=== PATIENT | female | born 1940 | race Caucasian/White ===

== ENCOUNTER → 2017-09-04 | Outpatient (CLI) | payer MEDICARE ==
[2017-09-04 12:51] LABS: Source, Urine Clean Catch
[2017-09-04 13:06] LABS: Color, Urine Yellow (P-Yellow)
[2017-09-04 13:08] LABS: Appearance, Urine Clear (Clear); Bilirubin, Urine Neg (Neg); Blood, Urine Neg (Neg); Glucose Qualitative, Urine Neg (Normal); Ketones, Urine Neg (Neg); Leukocyte Esterase, Urine Neg (Neg); Nitrite, Urine Neg (Neg); Protein, Urine Neg (Neg); Specific Gravity, Urine 1.015 (1.003-1.022); Urobilinogen, Urine NORM (Normal)
== END | disposition home or self-care (01) ==
LOC: LAB EV 12:00
PROVIDERS: Internal Medicine
DX: E11.22 Type 2 diabetes mellitus with diabetic chronic kidney disease (principal); N18.3 Chronic kidney disease, stage 3 (moderate)
CPT/HCPCS: 81003; 82043

== ENCOUNTER → 2017-09-10 | Outpatient (CLI) | payer MEDICARE ==
[2017-09-10 16:08] LABS: Creatinine, Urine Random 55.1 mg/dL (27.00-270.00); Protein, Urine Random 19.9 mg/dL (0.0-11.9)
== END ==
LOC: LAB SHORT 14:51
PROVIDERS: Internal Medicine
DX: E78.5 Hyperlipidemia, unspecified (principal); I10 Essential (primary) hypertension
CPT/HCPCS: 82570; 84156

== ENCOUNTER → 2018-02-05 | Outpatient (CLI) | payer MEDICARE ==
[2018-02-05 15:10] LABS: Appearance, Urine Clear (Clear); Bilirubin, Urine Neg (Neg); Blood, Urine Neg (Neg); Color, Urine Yellow (P-Yellow); Glucose Qualitative, Urine Neg (Neg); Ketones, Urine Neg (Neg); Leukocyte Esterase, Urine 1+ (Neg); Nitrite, Urine Neg (Neg); Protein, Urine 1+ (Neg); Specific Gravity, Urine 1.015 (1.003-1.022); Urobilinogen, Urine NORM (Normal)
[2018-02-05 15:51] LABS: Bacteria Few /hpf; Red Blood Cells, Urine 0-2 /hpf (0-2); Squamous Epithelial Cells Few /hpf (Few)
== END | disposition home or self-care (01) ==
LOC: LAB SHORT 12:30 → LAB 12:30
PROVIDERS: Internal Medicine
DX: N17.9 Acute kidney failure, unspecified (principal)
CPT/HCPCS: 81001

== ENCOUNTER → 2018-09-02 | Outpatient (CLI) | payer MEDICARE | END | disposition home or self-care (01) | LOC: PLD 13:46 → LAB SHORT 13:46 | DX: D48.5 Neoplasm of uncertain behavior of skin (principal) | CPT/HCPCS: 88305; 88312 ==

== ENCOUNTER → 2019-03-03 | Outpatient (CLI) | payer MEDICARE | END | disposition home or self-care (01) | LOC: PLD 08:12 → LAB SHORT 08:12 | DX: D48.5 Neoplasm of uncertain behavior of skin (principal) | CPT/HCPCS: 88305 ==

== ENCOUNTER → 2019-04-28 | Outpatient (CLI) | payer MEDICARE | END | disposition home or self-care (01) | LOC: LAB 08:30 → LAB SHORT 08:30 | DX: C44.310 Basal cell carcinoma of skin of unspecified parts of face (principal) | CPT/HCPCS: 88305 ==

== ENCOUNTER → 2019-08-06 | Outpatient (CLI) | payer MEDICARE ==
[2019-08-06 14:32] LABS: Source, Urine Clean Catch
[2019-08-06 15:20] LABS: Bilirubin, Urine Neg (Neg); Blood, Urine 1+ (Neg); Glucose Qualitative, Urine Neg (Neg); Ketones, Urine Neg (Neg); Leukocyte Esterase, Urine Neg (Neg); Nitrite, Urine Neg (Neg); Protein, Urine 2+ (Neg); Specific Gravity, Urine 1.015 (1.003-1.022); Urobilinogen, Urine NORM (Normal)
[2019-08-06 15:29] LABS: Appearance, Urine Clear (Clear); Color, Urine Yellow (P-Yellow)
[2019-08-06 15:31] LABS: Bacteria Few /hpf; Squamous Epithelial Cells Few /hpf (Few); White Blood Cells, Urine 0-2 /hpf (0-5)
== END | disposition home or self-care (01) ==
LOC: LAB 14:30 → LAB SHORT 14:30 → LAB FUT 07-08 11:30 → EDSTATUS 07-08 11:30
PROVIDERS: Internal Medicine
DX: N18.3 Chronic kidney disease, stage 3 (moderate) (principal)
CPT/HCPCS: 81001

== ENCOUNTER → 2020-09-26 | Outpatient (CLI) | payer MEDICARE ==
[~2020-09-26] MED LIST: ASPI81CH PO; CALCIUM CIT 311 EACH PO; CILO100 PO; FAMO10 PO; GEMF600 PO; HYDCHL25 PO; LORA10ER PO; LOSA25 PO; METO100ER PO; POTA10T PO; ROSU10TA PO; VENL150ER PO
[2020-09-26 18:26] LABS: BASOPHILS ABSOLUTE AUTO 0.06 K/mm3 (0.00-0.23); BASOPHILS PERCENT AUTO 1 % (0-2); EOSINOPHILS ABSOLUTE AUTO 0.36 K/mm3 (0.00-0.68); EOSINOPHILS PERCENT AUTO 3 % (0-6); Hematocrit 41.9 % (33.0-51.0); Hemoglobin 13.7 g/dL (11.5-16.0); IMMATURE GRAN ABSOLUTE AUTO 0.03 K/mm3 (0.00-0.10); IMMATURE GRAN PERCENT AUTO 0 % (0-1); LYMPHOCYTES ABSOLUTE AUTO 2.96 K/mm3 (0.84-5.20); LYMPHOCYTES PERCENT AUTO 28 % (21-46); MONOCYTES ABSOLUTE AUTO 0.72 K/mm3 (0.16-1.47); MONOCYTES PERCENT AUTO 7 % (4-13); Mean Corpuscular HGB 28.2 pg (26.0-34.0); Mean Corpuscular HGB Conc 32.7 g/dL (31.5-36.5); Mean Corpuscular Volume 86 fL (80-100); Mean Platelet Volume 9.6 fL (9.1-12.4); NEUTROPHILS PERCENT AUTO 61 % (41-73); Platelet Count 272 K/mm3 (150-400); RDW Coefficient Variation 12.9 % (11.7-14.2); RDW Standard Deviation 40.3 fL (35.1-46.3); Red Blood Cell Count 4.86 M/mm3 (3.80-5.20); White Blood Cell Count 10.53 K/mm3 (4.00-11.30)
== END | disposition home or self-care (01) ==
LOC: LAB EV 18:21 → LAB SHORT 18:21
PROVIDERS: Physician Assistant
DX: R19.5 Other fecal abnormalities (principal); R31.9 Hematuria, unspecified
CPT/HCPCS: 85025; 87086

== ENCOUNTER → 2020-09-27 | Outpatient (CLI) | payer MEDICARE ==
[2020-09-27 12:39] LABS: BASOPHILS ABSOLUTE AUTO 0.05 K/mm3 (0.00-0.23); BASOPHILS PERCENT AUTO 1 % (0-2); EOSINOPHILS ABSOLUTE AUTO 0.28 K/mm3 (0.00-0.68); EOSINOPHILS PERCENT AUTO 3 % (0-6); Hematocrit 39.3 % (33.0-51.0); IMMATURE GRAN ABSOLUTE AUTO 0.02 K/mm3 (0.00-0.10); IMMATURE GRAN PERCENT AUTO 0 % (0-1); LYMPHOCYTES ABSOLUTE AUTO 2.34 K/mm3 (0.84-5.20); LYMPHOCYTES PERCENT AUTO 28 % (21-46); MONOCYTES ABSOLUTE AUTO 0.53 K/mm3 (0.16-1.47); MONOCYTES PERCENT AUTO 6 % (4-13); Mean Corpuscular HGB 28.4 pg (26.0-34.0); Mean Corpuscular HGB Conc 33.1 g/dL (31.5-36.5); Mean Corpuscular Volume 86 fL (80-100); Mean Platelet Volume 9.4 fL (9.1-12.4); NEUTROPHILS ABSOLUTE AUTO 5.06 K/mm3 (1.96-9.15); NEUTROPHILS PERCENT AUTO 61 % (41-73); Platelet Count 253 K/mm3 (150-400); Red Blood Cell Count 4.58 M/mm3 (3.80-5.20); White Blood Cell Count 8.28 K/mm3 (4.00-11.30)
== END | disposition home or self-care (01) ==
LOC: LAB SHORT 12:36 → LAB 12:36
PROVIDERS: Physician Assistant
DX: R19.5 Other fecal abnormalities (principal)
CPT/HCPCS: 85025

== ENCOUNTER 2021-02-08 11:04 | Day surgery (SDC) | payer MEDICARE ==
[~2021-02-08] VITALS: Ht 152.4 cm; Wt 73.8 kg
[2021-02-08] MEDS ORDERED: ASPI81CH PO (12:43)
[2021-02-08] MEDS ORDERED: CILO100 PO (12:44)
[2021-02-08] MEDS ORDERED: CALCIUM CIT 311 EACH PO (12:44)
[2021-02-08] MEDS ORDERED: FAMO10 PO (12:45)
[2021-02-08] MEDS ORDERED: GEMF600 PO (12:45)
[2021-02-08] MEDS ORDERED: HYDCHL25 PO (12:45)
[2021-02-08] MEDS ORDERED: LORA10ER PO (12:46)
[2021-02-08] MEDS ORDERED: LOSA25 PO (12:46)
[2021-02-08] MEDS ORDERED: POTA10T PO (12:47)
[2021-02-08] MEDS ORDERED: METO100ER PO (12:47)
[2021-02-08] MEDS ORDERED: ROSU10TA PO (12:48)
[2021-02-08] MEDS ORDERED: VENL150ER PO (12:48)
--- NOTE | 2021-02-08 13:11 | NUR ---
02/08/21 1311 Lenka Bray PT BEGAN VOMITING AT 1216, PULSE DROPPED TO 58-60, THEN INCREASED TO 130. HEART RHYTHM CHANGED, MONITOR STATED "V-TACH". IMMEDIATELY WITHDREW SCOPE AND DR. DARNELL CALLED INTO ROOM. 12 LEAD EKG DONE, HYPERTENSIVE @ 228/94, O2 SATS 94-99% ON 3L O2. HEART RATE CHANGED BACK INTO NSR. CONTINUED PROCEDURE TO OBTAIN RECTAL BXS OF RECTAL MASS. PT GIVEN 2MG VERSED. RHYTHM REMAINS AT BASELINE THROUGHOUT PROCEDURE. PT BROOUGHT INTO STEPDOWN, VSS. PT REMAINS HYPERTENSIVE, ALTHOUGH AT BASELINE. PT DENIES ANY COMPLAINTS, DENIES CHEST PAIN. AWAITING PHYSICIAN ORDERS AND PLAN OF CARE.
--- NOTE | 2021-02-08 13:14 | NUR ---
02/08/21 1314 Lenka Bray AWAITING ORDERS FROM DR. DARNELL AFTER CONSULTATION WITH REAL ESTATE BRANCH MANAGER. PT DENIES NEEDS, PROVIDED WARM BLANKET, BOTH SIDE RAILS UP, CALL LIGHT IN REACH. WILL CONTINUE TO UPDATE AND MONITOR.
== END 2021-02-08 13:45 | disposition home or self-care (01) ==
LOC: ORSCSDS 11:04
PROVIDERS: Student in an Organized Health Care Education/Training Program
PROC: 0DBP8ZX Excision of Rectum, Via Natural or Artificial Opening Endoscopic, Diagnostic (ICD-10-PCS; principal; 2021-02-08 12:15)
DX: K62.5 Hemorrhage of anus and rectum (principal); D12.8 Benign neoplasm of rectum; K64.8 Other hemorrhoids; K64.4 Residual hemorrhoidal skin tags; I10 Essential (primary) hypertension; Z87.891 Personal history of nicotine dependence; N18.4 Chronic kidney disease, stage 4 (severe); E11.9 Type 2 diabetes mellitus without complications; Z79.899 Other long term (current) drug therapy; Z79.82 Long term (current) use of aspirin
CPT/HCPCS: 82947; 88305; 93005; 93010; J2250; J2405; J2704; J7120

== ENCOUNTER 2021-03-06 14:38 | Inpatient (IN) | payer MEDICARE ==
[~2021-03-06] VITALS: Ht 149.9 cm; Wt 83.1 kg
[~2021-03-06 14:38] MED LIST changes: -ASPI81CH PO; -CILO100 PO; -HYDCHL25 PO; -LOSA25 PO; -METO100ER PO; -POTA10T PO; -ROSU10TA PO; -VENL150ER PO
[2021-03-06 15:47] LABS: BASOPHILS ABSOLUTE AUTO 0.05 K/mm3 (0.00-0.23); BASOPHILS PERCENT AUTO 0 % (0-2); EOSINOPHILS ABSOLUTE AUTO 0.11 K/mm3 (0.00-0.68); EOSINOPHILS PERCENT AUTO 1 % (0-6); Hematocrit 45.6 % (33.0-51.0); IMMATURE GRAN ABSOLUTE AUTO 0.04 K/mm3 (0.00-0.10); IMMATURE GRAN PERCENT AUTO 0 % (0-1); LYMPHOCYTES ABSOLUTE AUTO 2.32 K/mm3 (0.84-5.20); LYMPHOCYTES PERCENT AUTO 18 % (21-46); MONOCYTES ABSOLUTE AUTO 0.81 K/mm3 (0.16-1.47); MONOCYTES PERCENT AUTO 6 % (4-13); Mean Corpuscular HGB 28.6 pg (26.0-34.0); Mean Corpuscular HGB Conc 32.9 g/dL (31.5-36.5); Mean Corpuscular Volume 87 fL (80-100); Mean Platelet Volume 9.9 fL (9.1-12.4); NEUTROPHILS ABSOLUTE AUTO 9.68 K/mm3 (1.96-9.15); NEUTROPHILS PERCENT AUTO 75 % (41-73); Platelet Count 289 K/mm3 (150-400); RDW Coefficient Variation 13.9 % (11.7-14.2); RDW Standard Deviation 44.5 fL (35.1-46.3); Red Blood Cell Count 5.25 M/mm3 (3.80-5.20); White Blood Cell Count 13.01 K/mm3 (4.00-11.30)
[2021-03-06 16:48] LABS: Alanine Aminotransfer (ALT/SGP 19 U/L (12-78); Albumin, Blood 3.6 g/dL (3.4-5.0); Albumin/Globulin Ratio 0.9 (0.8-1.8); Alk Phos 96 U/L (50-136); Anion Gap 9 mmol/L (6-16); Aspartate Aminotrans (AST/SGOT 14 U/L (12-37); Bilirubin, Total 0.9 mg/dL (0.1-1.0); Blood Urea Nitrogen 14 mg/dL (8-24); CO2, Blood 24 mmol/L (21-32); Calcium, Blood 9.3 mg/dL (8.5-10.1); Chloride, Blood 110 mmol/L (98-108); Creatinine, Blood 1.17 mg/dL (0.40-1.00); Ethanol (Alcohol), Blood, Med <3 mg/dL; Globulin, Blood 3.8 g/dL (2.2-4.0); Glomerular Filtration Rate 45 (60-); Glucose, Blood 144 mg/dL (70-99); Potassium, Blood 3.8 mmol/L (3.5-5.5); Sodium, Blood 143 mmol/L (136-145); Total Protein, Blood 7.4 g/dL (6.4-8.2)
[2021-03-06 17:32] LABS: Base Excess Venous -2.2 mmol/L; Bicarbonate Venous 23.3 mmol/L (24.0-30.0); PCO2 Venous 33.1 mmHg (38-42); PO2 Venous 104 mmHg (38-42); pH Blood Venous 7.43 (7.34-7.37)
[2021-03-06 17:54] LABS: Source, Urine Catheter
[2021-03-06 18:04] LABS: Appearance, Urine Clear (Clear); Bilirubin, Urine Neg (Neg); Blood, Urine 3+ (Neg); Color, Urine Yellow (P-Yellow); Glucose Qualitative, Urine Neg (Neg); Ketones, Urine 1+ (Neg); Leukocyte Esterase, Urine Neg (Neg); Nitrite, Urine Neg (Neg); Protein, Urine 4+ (Neg); Specific Gravity, Urine 1.015 (1.003-1.022); Urobilinogen, Urine NORM (Normal); pH, Urine 6.5 (5.0-8.0)
[2021-03-06] MEDS ORDERED: POTA10T PO (18:41)
[2021-03-06] MEDS ORDERED: HYDCHL25 PO (18:41)
[2021-03-06] MEDS ORDERED: HYDROCODONE-AC1 EA13 PO (18:41)
[2021-03-06] MEDS ORDERED: METO100ER PO (18:41)
[2021-03-06] MEDS ORDERED: VENL150ER PO (18:42)
[2021-03-06] MEDS ORDERED: CILO100 PO (18:42)
[2021-03-06] MEDS ORDERED: ROSU10TA PO (18:42)
[2021-03-06] MEDS ORDERED: LOSA25 PO (18:42)
[2021-03-06] MEDS ORDERED: Aspir 8181 MG PO (18:43)
[2021-03-06 18:50] LABS: RBC Count, CSF 742 /mm3 (0-0); WBC Count, CSF 0 /mm3 (0-5)
[2021-03-06 18:51] LABS: Appearance, CSF Clear (Clear); Color, CSF No Color (No Color)
[2021-03-06 18:58] LABS: RBC Count, CSF 1 /mm3 (0-0); WBC Count, CSF 0 /mm3 (0-5)
[2021-03-06 18:59] LABS: Appearance, CSF Clear (Clear); Color, CSF No Color (No Color)
--- NOTE | 2021-03-06 19:00 | NUR ---
ASSUMPTION OF CARE PT ARRIVED FROM ED AT 18:55. PT IS INTUBATED WITH SETTINGS AC 14/350/5/35. PT RECEIVING PROPOFOL AT 55MCG/KG/MIN. PT IS HYPERTENSIVE AT THIS TIME WITH SBP 240S. DR BETANCOURT AT BEDSIDE FOR EVAL, ORDER GIVEN FOR ESMOLOL. HUERTA PATENT AND DRAINING YELLOW URINE.
[2021-03-06 19:03] LABS: Glucose, CSF 69 mg/dL (40-70)
[2021-03-06 19:06] LABS: U Benzodiazapine Screen DETECTED; U Opiates Screen DETECTED
[2021-03-06 19:07] LABS: U Amphetamine Screen Not Detected; U Barbituate Screen Not Detected; U Buprenorphine Screen Not Detected; U Cannabinoids Screen Not Detected; U Cocaine Screen Not Detected; U Methadone Screen Not Detected; U Methamphetamine Screen Not Detected; U Oxycodone Screen Not Detected; U Phencyclidine Screen Not Detected; U Propoxyphene Screen Not Detected
[2021-03-06 19:15] LABS: Bacteria Many /hpf; Squamous Epithelial Cells Many /hpf (Few); White Blood Cells, Urine 0-2 /hpf (0-5)
[2021-03-06 20:08] LABS: Cryptococcus Neoformans/Gattii Not Detected (NOT DETECT); Enterovirus Not Detected (NOT DETECT); Escherichia Coli K1 Not Detected (NOT DETECT); Haemophilus Influenza Not Detected (NOT DETECT); Herpes Simplex Virus 1 Not Detected (NOT DETECT); Herpes Simplex Virus 2 Not Detected (NOT DETECT); Human Herpesvirus 6 Not Detected (NOT DETECT); Human Parechovirus Not Detected (NOT DETECT); Listeria Monocytogenes Not Detected (NOT DETECT); Neisseria Meningitidis Not Detected (NOT DETECT); Streptococcus Agalactiae Not Detected (NOT DETECT); Streptococcus Pneumoniae Not Detected (NOT DETECT); Varicella Zoster Virus Not Detected (NOT DETECT)
--- NOTE | 2021-03-06 21:50 | NUR ---
CALL TO LAB CALLED WITH CRITICAL LACTIC ACID. PT ALSO HAD 14 BEAT RUN OF VTACH ON CONTINUOUS MOLD CARPENTER. PHONE CALL PLACED TO DR BETANCOURT AT THIS TIME. ORDERS GIVEN FOR STAT LABS AND FLUIDS. REQUESTED TO BE CALLED WITH LAB RESULTS.
[2021-03-06 22:24] LABS: PCO2 Arterial 33.4 mmHg (35-45); PO2 Arterial 80.6 mmHg (80-100); pH Blood Arterial 7.47 (7.35-7.45)
[2021-03-06 22:53] LABS: Source, Urine Catheter
[2021-03-06 22:55] LABS: Bilirubin, Urine Neg (Neg); Blood, Urine Neg (Neg); Glucose Qualitative, Urine 1+ (Neg); Ketones, Urine Neg (Neg); Leukocyte Esterase, Urine Neg (Neg); Nitrite, Urine Neg (Neg); Protein, Urine 2+ (Neg); Urobilinogen, Urine NORM (Normal)
[2021-03-06 23:01] LABS: Appearance, Urine Clear (Clear); Color, Urine Yellow (P-Yellow)
[2021-03-06 23:02] LABS: Bacteria Many /hpf; Hyaline Casts 0-2 /lpf (0-2); Red Blood Cells, Urine 0-2 /hpf (0-2); Squamous Epithelial Cells Not Seen /hpf (Few)
[2021-03-06 23:20] LABS: Creatine Kinase MB 2.5 ng/mL (0.0-3.6); Creatine Kinase MB Index 2.6 (0.0-4.0)
[2021-03-06 23:26] LABS: Albumin, Blood 3.2 g/dL (3.4-5.0); Albumin/Globulin Ratio 0.8 (0.8-1.8); Bilirubin, Total 0.5 mg/dL (0.1-1.0); Bun/Creatinine Ratio 12.2 (12.0-20.0); Calcium, Blood 8.8 mg/dL (8.5-10.1); Creatinine, Blood 1.15 mg/dL (0.40-1.00); Potassium, Blood 3.5 mmol/L (3.5-5.5); Total Protein, Blood 7.2 g/dL (6.4-8.2); Troponin I 0.51 ng/mL (0.000-0.040)
--- NOTE | 2021-03-07 06:13 | NUR ---
SHIFT SUMMARY PT REMAINS INTUBATED. VENT SETTINGS AC 14/350/5/30%. PT RECEIVING PROPOFOL AT 35MCG/KG/MIN, ESMOLOL AT 50MCG/KG/MIN, AND LR AT 100MLS/HR. SBP REMAINS IN 140S. SBT DONE, SEE RT DOCUMENTATION. PROPOFOL TITRATED OFF, PT MOVING ALL EXTREMITIES PURPOSEFULLY BUT NOT FOLLOWING COMMANDS. BECAME AGITATED DURING WEAN. URINE OUTPUT 750ML THROUGHOUT SHIFT. WILL REPORT TO ONCOMING RN.
[2021-03-07 06:25] LABS: Hematocrit 43.5 % (33.0-51.0); Hemoglobin 14.4 g/dL (11.5-16.0); Mean Corpuscular HGB 28.6 pg (26.0-34.0); Mean Corpuscular HGB Conc 33.1 g/dL (31.5-36.5); Mean Corpuscular Volume 87 fL (80-100); Platelet Count 210 K/mm3 (150-400); RDW Coefficient Variation 14.4 % (11.7-14.2); RDW Standard Deviation 45.6 fL (35.1-46.3); Red Blood Cell Count 5.03 M/mm3 (3.80-5.20); White Blood Cell Count 14.37 K/mm3 (4.00-11.30)
--- NOTE | 2021-03-07 07:30 | NUR ---
ASSUMED CARE: PT INTUBATED AND SEDATED ON 45MCG OF PROPOFOL. VENT SETTINGS AC 14/350/5/30%. ESMOLOL GTT AT 50MCG AT THIS TIME WITH BPS IN 160S SYSTOLIC. BILATERAL WRIST RESTRAINTS. OG IN PLACE WITH GREEN DRAINAGE AT LIS. HUERTA DRAINING CLEAR YELLOW URINE. NO ACUTE NEEDS AT THIS TIME.
[2021-03-07 07:31] LABS: Creatine Kinase MB 6.7 ng/mL (0.0-3.6); Creatine Kinase MB Index 0.8 (0.0-4.0); Magnesium, Blood 2.1 mg/dL (1.6-2.4); Troponin I 0.396 ng/mL (0.000-0.040)
[2021-03-07 07:33] LABS: Bun/Creatinine Ratio 12.3 (12.0-20.0); Calcium, Blood 8.8 mg/dL (8.5-10.1); Creatinine, Blood 1.22 mg/dL (0.40-1.00); Phosphorus, Blood 3.2 mg/dL (2.5-4.9); Potassium, Blood 3.3 mmol/L (3.5-5.5)
--- NOTE | 2021-03-07 10:39 | NUR ---
ATTEMPTED TO SPEAK WITH PT'S . NO ANSWER ON EITHER PHONE NUMBER. LEFT A MESSAGE TO CALL BACK SO WE CAN ASK A FEW QUESTIONS.
--- NOTE | 2021-03-07 11:28 | NUR ---
PT'S CALLED BACK AND STATED THAT PT STARTED TAKING NORCO A FEW DAYS AGO AND ONLY TOOK IT FOR 2-3 DAYS. STATES SHE HAS DIABETES, HIGH BLOOD PRESSURE, A MASS IN HER ANUS, A BLOCKAGE OF THE AORTA AND "KIDNEY AND LIVER PROBLEMS." SEEMS TO BE POOR HISTORIAN. CALL TO DR COLON'S OFFICE AND FAX BACK WITH RECENT HEALTH HISTORY. DR BETANCOURT AWARE THAT THIS AVAILABLE FOR REVIEW.
--- NOTE | 2021-03-07 13:15 | NUR ---
Echocardiogram performed.
--- NOTE | 2021-03-07 18:53 | NUR ---
SHIFT SUMMARY: PT REMAINS ON VENT WITH SETTINGS AC 14/350/5/30%. PROPOFOL AT 45MCG AT THIS TIME. ESMOLOL GTT AT 40 MCG. ATTEMPTED TO TITRATE DOWN BUT PT'S BP COULD NOT TOLERATE. MEDICATED X1 WITH 5MG OF METOPROLOL. PLAN IS FOR IMPROVEMENT WITH MENTAL STATUS, CURRENTLY DOES NOT FOLLOW COMMANDS OR MAKE PURPOSEFUL MOVEMENT. FAMILY HAS BEEN UPDATED REGARDING STATUS.
--- NOTE | 2021-03-07 19:15 | NUR ---
REPORT RECEIVED-CARE ASSUMED. PT SEDATED ON PROPOFOL ON VENT. SEE FLOWSHEET FOR GTT RATES. CONTINUE ASSESSMENTS AND CARE.
--- NOTE | 2021-03-08 02:23 | NUR ---
ASSESS-NO CHANGE-HYDROLAZINE GIVEN ONCE AT 2330 FOR HTN. CONTINUE CURRENT GTTS-VITALS NOTED IN FLOWSHEET. BED BATH NOW. CONTINUE ASSESSMENTS AND CARE.
[2021-03-08 03:53] LABS: BASOPHILS ABSOLUTE AUTO 0.04 K/mm3 (0.00-0.23); BASOPHILS PERCENT AUTO 0 % (0-2); EOSINOPHILS ABSOLUTE AUTO 0.24 K/mm3 (0.00-0.68); EOSINOPHILS PERCENT AUTO 2 % (0-6); Hematocrit 37.7 % (33.0-51.0); Hemoglobin 12.2 g/dL (11.5-16.0); IMMATURE GRAN ABSOLUTE AUTO 0.06 K/mm3 (0.00-0.10); IMMATURE GRAN PERCENT AUTO 1 % (0-1); LYMPHOCYTES ABSOLUTE AUTO 1.68 K/mm3 (0.84-5.20); LYMPHOCYTES PERCENT AUTO 14 % (21-46); MONOCYTES ABSOLUTE AUTO 1.29 K/mm3 (0.16-1.47); MONOCYTES PERCENT AUTO 11 % (4-13); Mean Corpuscular HGB 28.6 pg (26.0-34.0); Mean Corpuscular HGB Conc 32.4 g/dL (31.5-36.5); Mean Corpuscular Volume 89 fL (80-100); Mean Platelet Volume 10.2 fL (9.1-12.4); NEUTROPHILS ABSOLUTE AUTO 8.98 K/mm3 (1.96-9.15); NEUTROPHILS PERCENT AUTO 73 % (41-73); Platelet Count 176 K/mm3 (150-400); RDW Coefficient Variation 14.7 % (11.7-14.2); RDW Standard Deviation 48.2 fL (35.1-46.3); Red Blood Cell Count 4.26 M/mm3 (3.80-5.20); White Blood Cell Count 12.29 K/mm3 (4.00-11.30)
[2021-03-08 06:51] LABS: Albumin, Blood 2.3 g/dL (3.4-5.0); Albumin/Globulin Ratio 0.7 (0.8-1.8); Bilirubin, Total 0.6 mg/dL (0.1-1.0); Bun/Creatinine Ratio 11.7 (12.0-20.0); Creatinine, Blood 1.2 mg/dL (0.40-1.00); Globulin, Blood 3.2 g/dL (2.2-4.0); Magnesium, Blood 2.1 mg/dL (1.6-2.4); Phosphorus, Blood 2.7 mg/dL (2.5-4.9); Potassium, Blood 3.7 mmol/L (3.5-5.5); Total Protein, Blood 5.5 g/dL (6.4-8.2)
--- NOTE | 2021-03-08 07:15 | NUR ---
END OF SHIFT REPORT OFF TO ONCOMING RN. PT REMAINS ON VENT-SEDATED ON PROPOFOL.
--- NOTE | 2021-03-08 10:00 | NUR ---
Care Assumed 0700 Pt intubated and sedated. Propofol GTT @ 55 mcg/kg/min when care assumed, titrated down, see flow sheet. Esmolol placed on SB, BP stable, will treat per emar as needed. Pt responds to noxious stimuli only, grimace during oral care, moves all extrems. Vent settings: VCA 14/350/5/30%, spo2 > 90%. Lung sounds clear. Stinson in place. OG tube in place to LIS. SBW. VSS. Will continue to monitor.
--- NOTE | 2021-03-08 11:00 | NUR ---
SBT 1028 to 1045 Propofol placed and SB and vent settings changed to PS 7/5, FIO2 30%. Pt tolerating vent settings well, SPO2 > 90% but thrashing in bed. Moving head from side to side, attempting to open eyes but unable to follow commands. Sedation vacation ended within 15 minutes due to risk of self extubation, RT at bedside and vent settings changed back to AC VC 14/350/5/30%.
--- NOTE | 2021-03-08 13:34 | NUR ---
HYPOGLYCEMIA Dr. Mckenna called in regards to patient CBG results of 54, new orders recieved, see emar. After treatment glucose increased to 79. Will continue to monitor.
--- NOTE | 2021-03-08 19:30 | NUR ---
ASSUMED CARE OF PATIENT. REPORT RECEIVED FROM ANETTE YOO. PT IS COMFORTABLY SEDATED ON PROPOFOL. PLAN FOR EXTUBATION TOMORROW.
--- NOTE | 2021-03-08 19:30 | NUR ---
Provider call - Hypoglycemia Dr. Mckenna called in regards to blood sugar of 57. New orders recieved, increase D5 1/2 NS to 125 ml/hr and place PRN orders for Dextrose 50% 1 AMP for blood sugar less than 75 ml/hr. CBG increased to 90 after treatment.
--- NOTE | 2021-03-08 19:34 | NUR ---
Shift summary Pt remains intubated, vent settings unchanged. Propofol GTT 45 MCG/KG/MIN, Pt unable to follow commands, responds to painful stumli. Pt hypoglycemic, see previous note. Currently on D5W 07/29 NS @ 125 ml/hr. Pts son in to see patient today, updated on all care being provided. VSS. NSR.
[2021-03-09 03:33] LABS: BASOPHILS ABSOLUTE AUTO 0.05 K/mm3 (0.00-0.23); BASOPHILS PERCENT AUTO 1 % (0-2); EOSINOPHILS PERCENT AUTO 3 % (0-6); Hematocrit 34.7 % (33.0-51.0); Hemoglobin 10.8 g/dL (11.5-16.0); IMMATURE GRAN ABSOLUTE AUTO 0.03 K/mm3 (0.00-0.10); IMMATURE GRAN PERCENT AUTO 0 % (0-1); LYMPHOCYTES ABSOLUTE AUTO 1.54 K/mm3 (0.84-5.20); LYMPHOCYTES PERCENT AUTO 17 % (21-46); MONOCYTES ABSOLUTE AUTO 0.93 K/mm3 (0.16-1.47); MONOCYTES PERCENT AUTO 10 % (4-13); Mean Corpuscular HGB 28.6 pg (26.0-34.0); Mean Corpuscular HGB Conc 31.1 g/dL (31.5-36.5); Mean Corpuscular Volume 92 fL (80-100); Mean Platelet Volume 10.4 fL (9.1-12.4); NEUTROPHILS ABSOLUTE AUTO 6.19 K/mm3 (1.96-9.15); NEUTROPHILS PERCENT AUTO 69 % (41-73); Platelet Count 201 K/mm3 (150-400); RDW Coefficient Variation 15.2 % (11.7-14.2); RDW Standard Deviation 51.2 fL (35.1-46.3); Red Blood Cell Count 3.78 M/mm3 (3.80-5.20); White Blood Cell Count 9.04 K/mm3 (4.00-11.30)
[2021-03-09 03:53] LABS: Albumin, Blood 2.1 g/dL (3.4-5.0); Albumin/Globulin Ratio 0.7 (0.8-1.8); Bilirubin, Total 0.5 mg/dL (0.1-1.0); Bun/Creatinine Ratio 10.3 (12.0-20.0); Calcium, Blood 8.1 mg/dL (8.5-10.1); Creatinine, Blood 1.26 mg/dL (0.40-1.00); Globulin, Blood 3.2 g/dL (2.2-4.0); Magnesium, Blood 1.9 mg/dL (1.6-2.4); Phosphorus, Blood 3.2 mg/dL (2.5-4.9); Potassium, Blood 3.3 mmol/L (3.5-5.5); Total Protein, Blood 5.3 g/dL (6.4-8.2)
--- NOTE | 2021-03-09 06:50 | NUR ---
SHIFT SUMMARY PT REMAINS COMFORTABLY SEDATED AND V/S WNL. SHE DID REQUIRE 1 DOSE OF HYDRALAZINE FOR ELEVATED BP LAST NOC. ARMS ARE EDEMATOUS AND ELEVATED ON PILLOWS. PLAN FOR EXTUBATION TODAY. WILL REPORT TO ONCOMING SHIFT.
--- NOTE | 2021-03-09 08:10 | NUR ---
INITIAL ASSESSMENT PATIENT INTUBATED AND SEDATED. PATIENT RESPONDING TO PAINFUL STIMULI/ ORAL CARE WITH GRIMACING AND SLIGHT MOVEMENT OF BILAT LEGS AND FEET. NO MOVEMENT IN HANDS/ ARMS NOTED. PATIENT AFEBRILE. NO PAIN NOTED AT THIS TIME. PATIENT ON AC 14, TV 350, PEEP 5 AND 30% FIO2. LUNGS CLEAR THROUGHOUT. SCANT AMOUNT OF THIN, CLEAR SPUTUM NOTED WITH ETT SUCTIONING. PATIENT IN SR, HR IN THE 70S. SBP 130S TO 140S. SCDS IN PLACE. HYPOACTIVE BS NOTED. OG IN PLACE AND CLAMPED. LAST DOCUMENTED BM ON 03/07. HUERTA IN PLACE DRAINING CLEAR, YELLOW URINE. FEET COLD AND DUSKY; CAP REFILL LESS THAN 3 SECONDS. PROPOFOL INFUSING AT 45 MCG/ KG/ MINUTE. D5W 1/2 NS INFUSING AT 125 MLS/ HOUR. BED LOW. WILL CONTINUE TO MONITOR PATIENT FREQUENTLY THROUGHOUT SHIFT.
[2021-03-09 09:12] LABS: Vancomycin, Trough 16.9 ug/mL (5.0-10.0)
--- NOTE | 2021-03-09 12:30 | NUR ---
PATIENT AFEBRILE. PATIENT EXTUBATED. PATIENT SATTING 90% AND GREATER ON 2 L NC. PATIENT ANXIOUS AND AGITATED. SPEECH GARBLED. PATIENT NOT FOLLOWING COMMANDS FOR NURSE BUT IS CLOSING EYES AND STICKING TONGUE OUT FOR DR. YU WHEN HE ASKS. HR 70S TO 90S. SBP 120S TO 130S. OG DC'D WHEN PATIENT EXTUBATED. BLOOD SUGAR OF 97. BED LOW, CALL LIGHT IN REACH, BED ALARM ON. WILL CONTINUE TO MONITOR.
--- NOTE | 2021-03-09 17:21 | NUR ---
PATIENT HAS TEMP OF 99.7 DEGREES FAHRENHEIT. PATIENT REMAINS SATTING 90% AND GREATER ON 2 L NC. RR 20S TO 40S. HR IN THE 1-TEENS. SBP 180S TO 220S. BP ELEVATED WITH AGITATION AND PATIENT MOVING AROUND IN BED. NICARDIPINE DRIP STARTED AND INFUSING AT 5 MG/ HOUR. BED LOW, CALL LIGHT IN REACH. RESTRAINTS BACK ON PATIENT CONTINUES TO PULL AT LINES, CORDS, MONITORING EQUIPMENT. WILL CONTINUE TO MONITOR.
--- NOTE | 2021-03-09 19:16 | NUR ---
SHIFT SUMMARY PATIENT EXTUBATED TODAY. PATIENT HAS BEEN CONFUSED AND AGITATED. PATIENT PLACED BACK IN RESTRAINTS PULLING AT LINES AND MONITORING EQUIPEMENT. PATIENT ORIENTED TO [facility] AND [place] [facility], OTHERWISE IS CONFUSED. PATIENT HAS BEEN TEARFUL ON AND OFF. SPEECH REMAINS GARBLED. PATIENT WEAK BUT ABLE TO MOVE ALL EXTREMITIES. PATIENT HAD HIGH TEMP OF 99.7 DEGREES FAHRENHEIT. LUNGS REMAINED CLEAR. PATIENT ON RA AT THIS TIME. PATIENT SR TO ST, HR 70S TO 120S. SBP 1-TEENS TO 220S. PATIENT TACHYCARDIC AND HYPERTENSIVE WHEN AGITATION AND MOVING AROUND. NICARDIPINE DRIP STARTED BUT IS NOW ON SB. PATIENT'S BLOOD PRESSURE COMES DOWN MUCH AFTER HOLDING PATIENT'S ARM AND HAND STILL. PATIENT HAD BM SMEAR THIS SHIFT. PATIENT REMAINED NPO FAILED BEDSIDE SWALLOW EVAL. 2400 MLS OF CLEAR YELLOW URINE OUT FROM HUERTA. NO CHANGE TO SKIN. REPOSITIONING Q2H. D5W 1/2 NS INFUSING AT 50 MLS/ HOUR. PATIENT RECEIVED ZYPREXA IM OT THIS SHIFT AND DID HELP WITH AGITATION. PATIENT RECEIVED COMPLETE BEDBATH THIS SHIFT. CAME TO VISIT THIS SHIFT. BLOOD SUGARS 97 TO 116. PATIENT RECEIVED 40 MEQ KCL FOR POTASSIUM OF 3.3 THIS AM. BED LOW, CALL LIGHT IN REACH. REPORT GIVEN TO ASSUMING INTERIOR DESIGN PROGRAM CHAIR NURSE.
--- NOTE | 2021-03-09 22:55 | NUR ---
ASSUMED CARE AT 1900, TRAVIS LYING IN BED, ASKEW. ASKED IF SHE KNEW WHERE SHE WAS AND SHE SAID ALICE, SHE DENIED ANY COMPLAINTS, KNEW SHE WAS AT THE HOSPITAL, MUMBLED SOMETHING ABOUT [place], SAID HER SON WAS THERE. PT REPOSITIONED, AGITATED, TEARFUL, ZYPREXA IM GIVEN PER EMAR. RESTRAINTS REMOVED, CARE DONE. PT WITH CLEAR LUNG SOUNDS, SATS >93% ON RA, RASPY SPEECH WEAK COUGH, MOVING ALL EXTREMITIES. BP ELEVATED, NICARDIPINE DRIP TURNED ON AT 5MG/HR FOR SBP >180 AND DBP >100. HUERTA TO GRAVITY DRAINAGE. PT WAS SLOWED DOWN SLIGHTLY BY THE ZYPREXA, BEGAN COMPLAINING OF HEADACHE AT 2200 AND MEDICATED PER SEP. PT STATED RELIEF FROM HEADACHE. CONTINUES TO BE ASKEW IN BED, REPEATS THINGS SHE HEARS. DOESN'T DO ANY COMMANDS. DOESN'T REORIENT WELL.
[2021-03-10 03:25] LABS: BASOPHILS ABSOLUTE AUTO 0.04 K/mm3 (0.00-0.23); BASOPHILS PERCENT AUTO 1 % (0-2); EOSINOPHILS ABSOLUTE AUTO 0.35 K/mm3 (0.00-0.68); EOSINOPHILS PERCENT AUTO 5 % (0-6); Hematocrit 34.9 % (33.0-51.0); Hemoglobin 11.1 g/dL (11.5-16.0); IMMATURE GRAN ABSOLUTE AUTO 0.01 K/mm3 (0.00-0.10); IMMATURE GRAN PERCENT AUTO 0 % (0-1); LYMPHOCYTES PERCENT AUTO 22 % (21-46); MONOCYTES ABSOLUTE AUTO 0.83 K/mm3 (0.16-1.47); MONOCYTES PERCENT AUTO 11 % (4-13); Mean Corpuscular HGB 28.8 pg (26.0-34.0); Mean Corpuscular HGB Conc 31.8 g/dL (31.5-36.5); Mean Corpuscular Volume 91 fL (80-100); Mean Platelet Volume 9.9 fL (9.1-12.4); NEUTROPHILS ABSOLUTE AUTO 4.68 K/mm3 (1.96-9.15); NEUTROPHILS PERCENT AUTO 62 % (41-73); Platelet Count 226 K/mm3 (150-400); Red Blood Cell Count 3.85 M/mm3 (3.80-5.20); White Blood Cell Count 7.61 K/mm3 (4.00-11.30)
[2021-03-10 03:41] LABS: Albumin, Blood 2.3 g/dL (3.4-5.0); Anion Gap 10 mmol/L (6-16); Blood Urea Nitrogen 8 mg/dL (8-24); Bun/Creatinine Ratio 7.2 (12.0-20.0); CO2, Blood 22 mmol/L (21-32); Calcium, Blood 8.6 mg/dL (8.5-10.1); Chloride, Blood 120 mmol/L (98-108); Creatinine, Blood 1.11 mg/dL (0.40-1.00); Glomerular Filtration Rate 47 (60-); Glucose, Blood 118 mg/dL (70-99); Phosphorus, Blood 2.9 mg/dL (2.5-4.9); Sodium, Blood 152 mmol/L (136-145)
--- NOTE | 2021-03-10 06:02 | NUR ---
TRAVIS REMAINS AGITATED AND ANXIOUS, SHE HAS BEEN AWAKE THROUGHOUT THE NIGHT. SHE HAS BEEN FIDGETING ALL OVER THE BED, WRISTS RESTRAINED FOR SAFETY OF LINES/TUBES/CATHETER. GOOD URINE OUTPUT >1500, CATH CARE DONE, REMAINS NPO, ASKING FOR HER , WANTING TO "TALK BETTER", KNOWS SHE IS IN [place] AT THE HOSPITAL.
--- NOTE | 2021-03-10 10:12 | NUR ---
UPDATE SPOKE WITH HOSPITALIST NAVYA PT THIS AM. PLAN TO WEAN OFF NICARDIPINE GTT IF ABLE TO TOLERATE PO MEDS. PT UNABLE TO TOLERATE BEDSIDE SWALLOW EVAL FOR THIS RN. ORDERS FOR SPEECH THERAPY TO BE PUT IN. ORDERS FOR RESTRAINTS TO CONT AT THIS TIME. IF PT UNABLE TO SWALLOW PO MEDICATIONS ORDERS FOR NG TUBE PLACEMENT.
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
--- NOTE | 2021-03-10 16:01 | NUR ---
UPDATE DOBHOFF PLACED PER PHYSICIAN ORDER. X RAY OBTAINED TO CONFIRM PLACEMENT. PHYSICIAN ORDER TO HAVE COZAAR GIVEN EARLY TO ATTEMPT TO WEAN PT OFF NICARDIPINE GTT. PT TO BE MEDICAL STATUS AT THIS TIME. NO TELE. WILL CONT TO MONITOR.
--- NOTE | 2021-03-10 16:58 | NUR ---
SHIFT SUMMARY/REPORT GIVEN PT ALERT. ORIENTED TO LOCATION, AND SELF. UNSURE OF REASON FOR ADMITTANCE TO HOSPITAL. HALLUCINATING AT TIMES. PT REMAINS IN SOFT WRIST RESTRAINTS D/T CONFUSION AND PULLING AT LINES. HR STABLE. BP STABLE. NICARDIPINE GTT OFF, SEE EHR. DOBHOFF INSERTED, X RAY DONE TO CONFIRM PLACEMENT. HUERTA PATENT TO GRAVITY DRAIN. ORAL CARE PROVIDED. PT TURNED Q 2 HRS. PT ABLE TO TURN SELF IN BED. DIETARY CONSULT PUT IN PER PHYSICIAN FOR ENTERAL FEEDINGS TO BEGIN 03/11. REPORT GIVEN TO ANETTE DOZIER. PT TO BE TRANSFERRED BY BED WITH ALL BELONGINGS TO ROOM 357 BY THIS RN AND DYNAMO REPAIRER.
[2021-03-11 04:26] LABS: BASOPHILS ABSOLUTE AUTO 0.06 K/mm3 (0.00-0.23); BASOPHILS PERCENT AUTO 1 % (0-2); EOSINOPHILS ABSOLUTE AUTO 0.28 K/mm3 (0.00-0.68); EOSINOPHILS PERCENT AUTO 4 % (0-6); Hematocrit 39.7 % (33.0-51.0); Hemoglobin 12.5 g/dL (11.5-16.0); IMMATURE GRAN ABSOLUTE AUTO 0.03 K/mm3 (0.00-0.10); IMMATURE GRAN PERCENT AUTO 0 % (0-1); LYMPHOCYTES ABSOLUTE AUTO 1.59 K/mm3 (0.84-5.20); LYMPHOCYTES PERCENT AUTO 21 % (21-46); MONOCYTES ABSOLUTE AUTO 0.74 K/mm3 (0.16-1.47); MONOCYTES PERCENT AUTO 10 % (4-13); Mean Corpuscular HGB 28.2 pg (26.0-34.0); Mean Corpuscular HGB Conc 31.5 g/dL (31.5-36.5); Mean Corpuscular Volume 90 fL (80-100); Mean Platelet Volume 9.7 fL (9.1-12.4); NEUTROPHILS ABSOLUTE AUTO 4.78 K/mm3 (1.96-9.15); NEUTROPHILS PERCENT AUTO 64 % (41-73); Platelet Count 260 K/mm3 (150-400); RDW Coefficient Variation 14.5 % (11.7-14.2); RDW Standard Deviation 47.8 fL (35.1-46.3); Red Blood Cell Count 4.43 M/mm3 (3.80-5.20); White Blood Cell Count 7.48 K/mm3 (4.00-11.30)
[2021-03-11 04:54] LABS: Albumin, Blood 2.5 g/dL (3.4-5.0); Anion Gap 11 mmol/L (6-16); Blood Urea Nitrogen 8 mg/dL (8-24); CO2, Blood 20 mmol/L (21-32); Calcium, Blood 8.7 mg/dL (8.5-10.1); Chloride, Blood 116 mmol/L (98-108); Creatinine, Blood 0.89 mg/dL (0.40-1.00); Glomerular Filtration Rate >60 (60-); Glucose, Blood 110 mg/dL (70-99); Phosphorus, Blood 3.4 mg/dL (2.5-4.9); Potassium, Blood 3.2 mmol/L (3.5-5.5); Sodium, Blood 147 mmol/L (136-145)
--- NOTE | 2021-03-11 05:59 | NUR ---
SHIFT SUMMARY- PT. CONFUSED, AGITATED, AND RESTLESS T/O THE NIGHT. ATTEMPTING TO GET OOB AND PULLING AT NGT WELL IV LINE. PT. WEAK, HIGH FALL RISK, BILATERAL WRIST RESTRAINTS IN PLACE AT START OF THE SHIFT. RECEIVED ORDER FOR TANISHA VEST. MEDICATED WITH ZYPREXA DURING THE NIGHT WITH NO EFFECT. PT. REMAINED RESTLESS T/O MOST OF THE NIGHT. DENIED ANY PAIN, REPOSITIONED FOR COMFORT AND PRN. REPORT FROM TELE EARLY THIS AM, PT. HAD 9 BEAT RUN OF VTACH. PT. AT THAT TIME ASLEEP, VSS, NO APPARENT DISTRESS NOTED. NORTIFIED DR. DINERO, NEW ORDERS GIVEN.
[2021-03-11 06:28] LABS: Anion Gap 11 mmol/L (6-16); Blood Urea Nitrogen 8 mg/dL (8-24); Bun/Creatinine Ratio 9.2 (12.0-20.0); CO2, Blood 19 mmol/L (21-32); Calcium, Blood 8.6 mg/dL (8.5-10.1); Chloride, Blood 117 mmol/L (98-108); Creatinine, Blood 0.87 mg/dL (0.40-1.00); Glomerular Filtration Rate >60 (60-); Glucose, Blood 109 mg/dL (70-99); Magnesium, Blood 1.9 mg/dL (1.6-2.4); Potassium, Blood 3.3 mmol/L (3.5-5.5); Sodium, Blood 147 mmol/L (136-145)
--- NOTE | 2021-03-11 13:14 | NUR ---
PHYSICIAN UPDATED SBP RUNNING IN 200'S THIS AM, PRN HYDRALAZINE AND LOPRESSOR GIVEN PER EMAR, WELL SCHEDULED PT MEDS. SBP STILL IN THE 180'S AFTER RECHECKING. UPDATED HOSPITALIST, ANOTHER DOSE OF IV HYDRALAZINE ORDERED AND ADMINISTERED. RECHECKED AND BP NOW 171/98. PROVIDER SATISFIED c BP AT THIS TIME, WILL CONTINUE TO MONITOR AND GIVE PRN MEDICATIONS ORDERED.
--- NOTE | 2021-03-11 18:05 | NUR ---
SHIFT SUMMARY PT LETHARGIC AND SLEPT THROUGH MOST OF SHIFT. ELEVATED BP T/O SHIFT WELL, SEE PREVIOUS NOTE. BP AND ALL VS NOW STABLE. PT WAS IN NONVIOLENT RESTRAINTS FOR MOST OF SHIFT, DISCONTINUED AT APPROX 1630. CAME TO VISIT AND SINCE PT HAS BEEN AWAKE AND ALERT, ABLE TO FOLLOW DIRECTION, CALLS APPROPRIATELY, AND IS NOT PULLING AT TUBING. BED ALARM IS ON FOR FALL PRECAUTION. HUERTA PATENT AND DRAINING. PT DENIES ANY DISTRESS CURRENTLY, BESIDES BEING HUNGRY AND THIRSTY. PT IS STRICT NPO AT THIS TIME. PT IS CURRENTLY RESTING IN BED WATCHING TV, CALL LIGHT WITHIN REACH.
[2021-03-12 05:56] LABS: BASOPHILS ABSOLUTE AUTO 0.06 K/mm3 (0.00-0.23); BASOPHILS PERCENT AUTO 1 % (0-2); EOSINOPHILS ABSOLUTE AUTO 0.35 K/mm3 (0.00-0.68); EOSINOPHILS PERCENT AUTO 4 % (0-6); Hematocrit 42.3 % (33.0-51.0); Hemoglobin 13.3 g/dL (11.5-16.0); IMMATURE GRAN ABSOLUTE AUTO 0.04 K/mm3 (0.00-0.10); IMMATURE GRAN PERCENT AUTO 1 % (0-1); LYMPHOCYTES ABSOLUTE AUTO 2.08 K/mm3 (0.84-5.20); LYMPHOCYTES PERCENT AUTO 25 % (21-46); MONOCYTES ABSOLUTE AUTO 0.87 K/mm3 (0.16-1.47); MONOCYTES PERCENT AUTO 10 % (4-13); Mean Corpuscular HGB 28.4 pg (26.0-34.0); Mean Corpuscular HGB Conc 31.4 g/dL (31.5-36.5); Mean Corpuscular Volume 90 fL (80-100); Mean Platelet Volume 10.1 fL (9.1-12.4); NEUTROPHILS ABSOLUTE AUTO 5.09 K/mm3 (1.96-9.15); NEUTROPHILS PERCENT AUTO 60 % (41-73); Platelet Count 302 K/mm3 (150-400); RDW Coefficient Variation 14.5 % (11.7-14.2); RDW Standard Deviation 47.5 fL (35.1-46.3); Red Blood Cell Count 4.69 M/mm3 (3.80-5.20); White Blood Cell Count 8.49 K/mm3 (4.00-11.30)
--- NOTE | 2021-03-12 05:57 | NUR ---
SHIFT SUMMARY- PT. A&OX3, ABLE TO MAKE NEEDS KNOWN AND CALLS APPROPRIATELY. NGT CLOGGED LAST NIGHT, SEVERAL ATTEMPTS MADE BY NURSING STAFF TO UNCLOG TUBE, UNSUCCESSFUL. HOSPITALIST MADE AWARE. ELEVATED BP AND HR TREATED WITH PRN IV MEDS. PT. VITALS IMPROVED T/O THE NIGHT. HAD NO COMPLAINTS OF PAIN OR DISCOMFORT. RESTED QUIETLY IN BED T/O THE NIGHT, NO APPARENT DISTRESS NOTED. HUERTA CATHETER PATENT AND DRAINING. INCONT OF BOWEL HAD LOOSE BM, ATTENDS IN PLACE. DENIES NEEDS AT THIS TIME. CALL LIGHT WITHIN REACH, SIDE RAILS UPX3, AND BED ALARM ON FOR SAFETY. WILL CONT TO MONITOR.
[2021-03-12 06:16] LABS: Albumin, Blood 2.8 g/dL (3.4-5.0); Anion Gap 11 mmol/L (6-16); Blood Urea Nitrogen 17 mg/dL (8-24); Bun/Creatinine Ratio 15.9 (12.0-20.0); CO2, Blood 22 mmol/L (21-32); Calcium, Blood 9.3 mg/dL (8.5-10.1); Chloride, Blood 115 mmol/L (98-108); Creatinine, Blood 1.07 mg/dL (0.40-1.00); Glomerular Filtration Rate 50 (60-); Glucose, Blood 87 mg/dL (70-99); Phosphorus, Blood 3.3 mg/dL (2.5-4.9); Potassium, Blood 3.3 mmol/L (3.5-5.5); Sodium, Blood 148 mmol/L (136-145)
--- NOTE | 2021-03-12 18:47 | NUR ---
SUMMARY: NO ACUTE CHANGE TODAY. PT IS A/O, FORGETFUL AND IMPULSIVE TODAY. BED ALARM AND CHAIR ALARM NEEDED. PT ATTEMPTING UP WITHOUT CALLING, EASILY RE OREINTED BUT NEEDED EXTRA REMINDERS. DOBHOFF TUBE DC'D AT ABOUT 1130 PER ORDER AND PT TOLERATING PUREE DIET WELL, PT APPEARS TO BE SWALLOWING WITHOUT DIFFICULTLY. HR 100-115 TODAY, PT HAD SOME HTN, SEE VS, PT ASYMPTOMATIC AND MEDICATED PER EMAR. TELE STABLE AT THIS TIME, PT DENIES CP. PT DAUGHTER UPDATED ON PT PLAN OF CARE. WILL CTM AND REPORT TO TANVIR RN.
--- NOTE | 2021-03-12 19:50 | NUR ---
ASSUMED CARE. AOX2 BUT FORGETFUL, BED ALARM IS ON. FOLLOWS DIRECTIONS WELL. STATES PAIN 10/10 GENERALIZED ALL OVER. TIRED AND REPORTS SHE IS GOING TO BED. LUNG SOUNDS DIMINISHED IN THE BASES. HUERTA CATHETER PATENT AND DRAINING. DAYSHIFT RN REPORTS ORDER TO DC BUT WAS WAITING TILL PT WAS ABLE TO WORK WITH HER SHE HAS BEEN VERY WEAK AND TENDS TO BE IMPULSIVE. JUST GOT OUT OF RESTRAINTS THIS AM. DENIES CHEST PAIN, SOB, N/V, DIZZINESS, HEADACHES. BRUISING SCATTERED T/O. IV TO RIGHT WRIST SL. ON THIN LIQUIDS AND ABLE TO SWALLOW PILLS IN APPLESAUCE. WILL CONTINUE TO MONITOR. CALL LIGHT IN REACH.
--- NOTE | 2021-03-12 21:15 | NUR ---
RECEIVED CALL FROM PHYSICAL THERAPY AIDES TEACHER WHO FOUND THE PATIENT ON THE FLOOR AND BED ALARM GOING OFF. PATIENT STATES SHE WAS GETTING UP TO GO TO THE BATHROOM WHEN THERE WAS A HUERTA CATHETER IN PLACE. SHE REPORTS SHE JUST SLID DOWN THE SIDE OF THE BED ON TO HER BOTTOM, DENIES HITTING ANY PART OF HER BODY OR HEAD. NO SIGN OF INJURY NOTED. ABLE TO STAND UP WITH ASSISTANCE AND GET BACK TO BED. VITALS ARE ELEVATED SHE IS VERY CONFUSED, SUNDOWNING, ONLY ALERT TO SELF. THOUGHT SHE WAS HOME. POSY VEST WAS APPLIED THE EVEN HAPPENED VERY QUICKLY. SHE ALSO PULLED OFF HER TELE. WE HAVE REPLACED HER TELE SEVERAL TIMES PRIOR TO THIS DUE TO HER PULLING IT OFF. WILL CALL MD IN REGARDS TO THE SITUATION AND GET ORDERS.
--- NOTE | 2021-03-13 06:42 | NUR ---
SHIFT SUMMARY: PT HAD FALL AT START OF SHIFT, WAS TRYING TO GET OUT OF BED TO USE THE BATHROOM FORGETTING ABOUT THE CATHETER. STATES JUST SLID ON THE FLOOR, NO FOUND INJURIES. INCREASE IN CONFUSION, POSSIBLE SUNDOWNING, POSI VEST PLACED FOR SAFETY, SHE FOUGHT IT ALL NIGHT, ZYPREXA GIVEN X1 TO DECREASE AGGITATION. BP ELEVATED TO 180'S, THEN DOWN WITH MED AND BACK UP THIS AM. HYDROLAZINE WAS GIVEN. TELE REMOVED MULTIPLE TIMES SHE WOULD NOT LEAVE IT ON, REFUSED TO ALLOW US TO PUT IT BACK ON. TELE DC'D. PATIENT JUST FELL ASLEEP. NO OTHER CHANGES TO NOTE. CALL LIGHT IS IN REACH.
[2021-03-13 14:59] LABS: Albumin, Blood 3.2 g/dL (3.4-5.0); Anion Gap 6 mmol/L (6-16); Blood Urea Nitrogen 20 mg/dL (8-24); Bun/Creatinine Ratio 17.9 (12.0-20.0); CO2, Blood 22 mmol/L (21-32); Calcium, Blood 9.3 mg/dL (8.5-10.1); Chloride, Blood 115 mmol/L (98-108); Creatinine, Blood 1.12 mg/dL (0.40-1.00); Glomerular Filtration Rate 47 (60-); Glucose, Blood 125 mg/dL (70-99); Phosphorus, Blood 4.6 mg/dL (2.5-4.9); Potassium, Blood 3.8 mmol/L (3.5-5.5); Sodium, Blood 143 mmol/L (136-145)
--- NOTE | 2021-03-13 17:15 | NUR ---
sitting up in chair with alarm on, called dr to continue vest for pt safety, since pt tends to be compative when she wakes up and is not yet alert, call light in reach, rm air, will continue to monitor and treat until share bsr with noc nurse
[2021-03-14 04:58] LABS: BASOPHILS ABSOLUTE AUTO 0.03 K/mm3 (0.00-0.23); BASOPHILS PERCENT AUTO 0 % (0-2); EOSINOPHILS ABSOLUTE AUTO 0.29 K/mm3 (0.00-0.68); EOSINOPHILS PERCENT AUTO 4 % (0-6); Hematocrit 37.1 % (33.0-51.0); Hemoglobin 11.9 g/dL (11.5-16.0); IMMATURE GRAN ABSOLUTE AUTO 0.02 K/mm3 (0.00-0.10); IMMATURE GRAN PERCENT AUTO 0 % (0-1); LYMPHOCYTES ABSOLUTE AUTO 2.21 K/mm3 (0.84-5.20); LYMPHOCYTES PERCENT AUTO 31 % (21-46); MONOCYTES ABSOLUTE AUTO 0.88 K/mm3 (0.16-1.47); MONOCYTES PERCENT AUTO 12 % (4-13); Mean Corpuscular HGB Conc 32.1 g/dL (31.5-36.5); Mean Corpuscular Volume 91 fL (80-100); Mean Platelet Volume 9.6 fL (9.1-12.4); NEUTROPHILS PERCENT AUTO 52 % (41-73); Platelet Count 256 K/mm3 (150-400); RDW Coefficient Variation 14.4 % (11.7-14.2); RDW Standard Deviation 47.8 fL (35.1-46.3); White Blood Cell Count 7.13 K/mm3 (4.00-11.30)
--- NOTE | 2021-03-14 04:59 | NUR ---
SHIFT SUMMARY: PT A&O TO SELF,CONFUSED TANGENTIAL SPEECH BELIVES STAFF WORK WITH HER AT [employer] EASILY REDIRECTABLE USES CALL LIGHT INTERMITTENTLY BED ALARM ON. HYPERTENSIVE 157/83, CBG AC/HS PT DENIES PAIN,CP. SLIGHT EDEMA TO LE WAS ABLE TO AMBULATE TO BED WITH 1P ASSIST. PT SLEPT T/O SHIFT RESPIRATIONS EVEN UNLABORED. CALL LIGHT WITHIN REACH BED LOWERED.
[2021-03-14 05:15] LABS: Albumin, Blood 2.5 g/dL (3.4-5.0); Anion Gap 6 mmol/L (6-16); Blood Urea Nitrogen 24 mg/dL (8-24); Bun/Creatinine Ratio 20.5 (12.0-20.0); CO2, Blood 25 mmol/L (21-32); Calcium, Blood 8.4 mg/dL (8.5-10.1); Chloride, Blood 113 mmol/L (98-108); Creatinine, Blood 1.17 mg/dL (0.40-1.00); Glomerular Filtration Rate 45 (60-); Glucose, Blood 122 mg/dL (70-99); Phosphorus, Blood 4.7 mg/dL (2.5-4.9); Potassium, Blood 3.6 mmol/L (3.5-5.5); Sodium, Blood 144 mmol/L (136-145)
--- NOTE | 2021-03-14 19:08 | NUR ---
SUMMARY- PT ALERT TO SELF, PLACE AND CIRCUMSTANCE. KNOWS LIMITS. USES CALL LIGHT. ROOM AIR, 98%. TOLERATING FOOD AND FLUIDS. GOT OOB WITH PT OT AND DID WELL. HIGH BP AT 1545, MEDICATED WITH HYDRALAZINE WITH GOOD EFFECT. PT CONT AND INCONTINENE. BACK TO CHAIR WITH HAT BODY SORTER STAND PIVOT TX WITH GOOD STRENGTH. WILL REPORT TO RN.
[2021-03-15 04:30] LABS: Hematocrit 37.7 % (33.0-51.0); Mean Corpuscular HGB 28.6 pg (26.0-34.0); Mean Corpuscular HGB Conc 31.8 g/dL (31.5-36.5); Mean Corpuscular Volume 90 fL (80-100); Platelet Count 279 K/mm3 (150-400); RDW Coefficient Variation 14.5 % (11.7-14.2); Red Blood Cell Count 4.19 M/mm3 (3.80-5.20); White Blood Cell Count 7.25 K/mm3 (4.00-11.30)
[2021-03-15 05:22] LABS: Albumin, Blood 2.7 g/dL (3.4-5.0); Albumin/Globulin Ratio 0.8 (0.8-1.8); Bilirubin, Total 0.3 mg/dL (0.1-1.0); Bun/Creatinine Ratio 19.6 (12.0-20.0); Calcium, Blood 8.5 mg/dL (8.5-10.1); Creatinine, Blood 1.12 mg/dL (0.40-1.00); Globulin, Blood 3.2 g/dL (2.2-4.0); Magnesium, Blood 2.3 mg/dL (1.6-2.4); Potassium, Blood 3.6 mmol/L (3.5-5.5); Thyroid Stimulating Hormone 2.33 uIU/mL (0.360-4.800); Total Protein, Blood 5.9 g/dL (6.4-8.2)
--- NOTE | 2021-03-15 05:56 | NUR ---
SHIFT SUMMARY: PT IS A&OX3 LESS CONFUSED SPEECH IS LOGICAL CONCRETE. PT SLEPT T/O SHIFT TIL 0530 R/T INCONTIN. VOID HELPED TO BEDSIDE COMODE.PT HAD LARGE BM AND VOIDED AGAIN. FRESH A ND CLOTHING WARM BLANKET GIVEN PT TOOK AM MEDICATION WHOLE W/ WATER. TRANSFERED WITH 1P ASSIST. PT IS WEARING ATTEND. USE CALL LIGHT APPROPERIATELY CALL LIGHT WITHIN REACH BED LOWERED.
--- NOTE | 2021-03-15 12:53 | NUR ---
PATIENT REFUSED CT SCAN. PATIENT STATES "SHES FINE". DR QUINN NOTIFIED ABOUT PATIENTS REFUSAL.
--- NOTE | 2021-03-15 13:32 | NUR ---
DISCHARGE SUMMARY PATIENT ALERT AND ORIENTATED. VITAL SIGNS REVIEWED. PATIENT DISCHARGED WITH BELONGINGS. PATIENT WAS INFORMED OF DISCHARGE PLAN AND AGREED WITH DISCHARGE PLAN. PATIENT WHEELED OUT TO FAMILY IN PERSONAL AUTOMOBILE BY THIS RN.
[2021-03-16 01:11] LABS: ALDOS/RENIN RATIO <.1 (0.0-30.0); ALDOSTERONE <1.0 ng/dL (0.0-30.0)
== END 2021-03-15 13:33 | disposition home health service (06) | DRG 871 ==
LOC: ER 14:38 → ICUW 18:38 → MEDS 03-10 17:49
PROVIDERS: Emergency Medicine; Family Medicine; Internal Medicine; Internal Medicine Critical Care Medicine; Pharmacist; ADMIT Internal Medicine
PROC: 5A1945Z Respiratory Ventilation, 24-96 Consecutive Hours (ICD-10-PCS; principal; 2021-03-06)
PROC: 0BH18EZ Insertion of Endotracheal Airway into Trachea, Via Natural or Artificial Opening Endoscopic (ICD-10-PCS; 2021-03-06)
PROC: 009U3ZX Drainage of Spinal Canal, Percutaneous Approach, Diagnostic (ICD-10-PCS; 2021-03-06)
DX: A41.9 Sepsis, unspecified organism (principal); J96.01 Acute respiratory failure with hypoxia; G92 Toxic encephalopathy; J18.9 Pneumonia, unspecified organism; I21.A1 Myocardial infarction type 2; R65.21 Severe sepsis with septic shock; N39.0 Urinary tract infection, site not specified; I42.1 Obstructive hypertrophic cardiomyopathy; N18.4 Chronic kidney disease, stage 4 (severe); E87.0 Hyperosmolality and hypernatremia; I67.4 Hypertensive encephalopathy; E11.22 Type 2 diabetes mellitus with diabetic chronic kidney disease; Z88.5 Allergy status to narcotic agent; E11.51 Type 2 diabetes mellitus with diabetic peripheral angiopathy without gangrene; I25.10 Atherosclerotic heart disease of native coronary artery without angina pectoris; E78.5 Hyperlipidemia, unspecified; Z90.710 Acquired absence of both cervix and uterus; Z98.890 Other specified postprocedural states; Z88.8 Allergy status to other drugs, medicaments and biological substances; Z91.040 Latex allergy status; Z79.899 Other long term (current) drug therapy; Z79.82 Long term (current) use of aspirin; Z87.891 Personal history of nicotine dependence; K21.9 Gastro-esophageal reflux disease without esophagitis; B95.61 Methicillin susceptible Staphylococcus aureus infection as the cause of diseases classified elsewhere
CPT/HCPCS: 31500; 36415; 36600; 51702; 62270; 70450; 71045; 80048; 80053; 80069; 80202; 81001; 82088; 82140; 82330; 82550; 82553; 82607; 82746; 82803; 82945; 82947; 83605; 83735; 83880; 84100; 84145; 84157; 84244; 84443; 84484; 85025; 85027; 87040; 87070; 87077; 87086; 87147; 87186; 87205; 87483; 89051; 92526; 92610; 93005; 93010; 93306; 94002; 94003; 96374-59; 96375-59; 96376-59; 97110; 97116; 97161; 97166; 97530; 97535; 99291-25; A9270; C9113; G0480; J0133; J0330; J0360; J0696; J1650; J2060; J2543; J2704; J3010; J3370; J3480; J7030; J7042; J7050; J7060; J7120

== ENCOUNTER → 2021-03-20 | Outpatient (CLI) | payer MEDICARE ==
[~2021-03-20] MED LIST changes: +Aspir 8181 MG PO; +CILO100 PO; +HYDCHL25 PO; +HYDROCODONE-AC1 EA13 PO; +LOSA25 PO; +METO100ER PO; +POTA10T PO; +ROSU10TA PO; +VENL150ER PO
[2021-03-20 21:50] LABS: C DIFFICILE DNA POSITIVE (Negative)
== END | disposition home or self-care (01) ==
LOC: LAB 16:10 → LAB SHORT 16:10 → LAB FUT 03-19 11:05
PROVIDERS: Internal Medicine
DX: R19.7 Diarrhea, unspecified (principal)
CPT/HCPCS: 87324; 87493

== ENCOUNTER → 2021-09-18 | Outpatient (CLI) | payer MEDICARE ==
[2021-09-18 13:38] LABS: BASOPHILS PERCENT AUTO 1 % (0-2); EOSINOPHILS ABSOLUTE AUTO 0.63 K/mm3 (0.00-0.68); EOSINOPHILS PERCENT AUTO 7 % (0-6); Hematocrit 40.3 % (33.0-51.0); IMMATURE GRAN ABSOLUTE AUTO 0.03 K/mm3 (0.00-0.10); IMMATURE GRAN PERCENT AUTO 0 % (0-1); LYMPHOCYTES PERCENT AUTO 28 % (21-46); MONOCYTES ABSOLUTE AUTO 0.59 K/mm3 (0.16-1.47); MONOCYTES PERCENT AUTO 7 % (4-13); Mean Corpuscular HGB 28.2 pg (26.0-34.0); Mean Corpuscular HGB Conc 32.3 g/dL (31.5-36.5); Mean Corpuscular Volume 87 fL (80-100); Mean Platelet Volume 9.8 fL (9.1-12.4); NEUTROPHILS ABSOLUTE AUTO 5.09 K/mm3 (1.96-9.15); NEUTROPHILS PERCENT AUTO 57 % (41-73); Platelet Count 298 K/mm3 (150-400); RDW Coefficient Variation 14.3 % (11.7-14.2); RDW Standard Deviation 45.6 fL (35.1-46.3); Red Blood Cell Count 4.61 M/mm3 (3.80-5.20); White Blood Cell Count 8.94 K/mm3 (4.00-11.30)
[2021-09-18 14:08] LABS: Albumin, Blood 3.6 g/dL (3.4-5.0); Anion Gap 7 mmol/L (6-16); Blood Urea Nitrogen 20 mg/dL (8-24); Bun/Creatinine Ratio 15.6 (12.0-20.0); CO2, Blood 26 mmol/L (21-32); Calcium, Blood 9.1 mg/dL (8.5-10.1); Chloride, Blood 107 mmol/L (98-108); Creatinine, Blood 1.28 mg/dL (0.40-1.00); Glomerular Filtration Rate 40 (60-); Glucose, Blood 163 mg/dL (70-99); Phosphorus, Blood 4.2 mg/dL (2.5-4.9); Potassium, Blood 3.3 mmol/L (3.5-5.5); Sodium, Blood 140 mmol/L (136-145)
[2021-09-18 14:10] LABS: Alanine Aminotransfer (ALT/SGP 35 U/L (12-78); Albumin, Blood 3.6 g/dL (3.4-5.0); Albumin/Globulin Ratio 1.1 (0.8-1.8); Alk Phos 127 U/L (50-136); Anion Gap 10 mmol/L (6-16); Aspartate Aminotrans (AST/SGOT 24 U/L (12-37); Bilirubin, Direct 0.1 mg/dL (0.0-0.3); Bilirubin, Indirect 0.3 mg/dL (0.1-0.7); Bilirubin, Total 0.4 mg/dL (0.1-1.0); Blood Urea Nitrogen 21 mg/dL (8-24); Bun/Creatinine Ratio 17.1 (12.0-20.0); CHOL/HDL RATIO 3.5; CO2, Blood 26 mmol/L (21-32); Calcium, Blood 9.3 mg/dL (8.5-10.1); Chloride, Blood 105 mmol/L (98-108); Cholesterol 184 mg/dL (50-200); Creatinine, Blood 1.23 mg/dL (0.40-1.00); Globulin, Blood 3.4 g/dL (2.2-4.0); Glomerular Filtration Rate 42 (60-); Glucose, Blood 151 mg/dL (70-99); HDL Cholesterol 53 mg/dL (>39); Low Density Lipoprotein Chol 54 mg/dL (0-110); Potassium, Blood 3.4 mmol/L (3.5-5.5); Sodium, Blood 141 mmol/L (136-145); Triglycerides 384 mg/dL (30-160); Very Low Density Lipoprot Chol 76 mg/dL (6-32)
== END ==
LOC: LAB SHORT 11:48 → LAB FUT 11-01 09:50
PROVIDERS: Internal Medicine; Internal Medicine Nephrology
DX: E11.22 Type 2 diabetes mellitus with diabetic chronic kidney disease (principal); N18.32 Chronic kidney disease, stage 3b; E78.5 Hyperlipidemia, unspecified
CPT/HCPCS: 36415; 80048; 80061; 80069; 80076; 83036; 85025

== ENCOUNTER → 2022-01-30 | Outpatient (CLI) | payer MEDICARE | END | disposition home or self-care (01) | LOC: PLD 15:17 → LAB SHORT 15:17 | DX: L57.0 Actinic keratosis (principal) | CPT/HCPCS: 88305; 88312 ==

== ENCOUNTER 2022-07-21 21:56 | Inpatient (IN) | payer MEDICARE ==
[~2022-07-21] VITALS: Ht 152.4 cm; Wt 77.7 kg
[2022-07-21 22:14] LABS: BASOPHILS ABSOLUTE AUTO 0.12 K/mm3 (0.00-0.23); BASOPHILS PERCENT AUTO 1 % (0-2); EOSINOPHILS ABSOLUTE AUTO 0.41 K/mm3 (0.00-0.68); EOSINOPHILS PERCENT AUTO 3 % (0-6); Hematocrit 45.8 % (33.0-51.0); Hemoglobin 14.3 g/dL (11.5-16.0); IMMATURE GRAN ABSOLUTE AUTO 0.11 K/mm3 (0.00-0.10); IMMATURE GRAN PERCENT AUTO 1 % (0-1); LYMPHOCYTES ABSOLUTE AUTO 9.24 K/mm3 (0.84-5.20); LYMPHOCYTES PERCENT AUTO 60 % (21-46); MONOCYTES ABSOLUTE AUTO 0.86 K/mm3 (0.16-1.47); MONOCYTES PERCENT AUTO 6 % (4-13); Mean Corpuscular HGB 28.8 pg (26.0-34.0); Mean Corpuscular HGB Conc 31.2 g/dL (31.5-36.5); Mean Corpuscular Volume 92 fL (80-100); Mean Platelet Volume 10.2 fL (9.1-12.4); NEUTROPHILS ABSOLUTE AUTO 4.76 K/mm3 (1.96-9.15); NEUTROPHILS PERCENT AUTO 31 % (41-73); Platelet Count 298 K/mm3 (150-400); RDW Coefficient Variation 13.6 % (11.7-14.2); Red Blood Cell Count 4.97 M/mm3 (3.80-5.20)
[2022-07-21 22:15] LABS: Calcium, Ionized (POC) 1.15 mmol/L (1.10-1.46); Chloride (POC) 108 mmol/L (98-108); Creatinine (POC) 1.7 mg/dL (0.6-1.0); Glucose (ISTAT POC) 267 mg/dL (70-99); Hemoglobin (POC) 14.3 g/dL (12.0-16.0); Potassium (POC) 3.9 mmol/L (3.5-5.5); Sodium (POC) 137 mmol/L (135-148); Total CO2 (POC) 17 mmol/L (21-32)
[2022-07-21 22:28] LABS: Albumin, Blood 3.1 g/dL (3.4-5.0); Albumin/Globulin Ratio 0.8 (0.8-1.8); Bilirubin, Total 0.2 mg/dL (0.1-1.0); Bun/Creatinine Ratio 17.1 (12.0-20.0); Calcium, Blood 8.6 mg/dL (8.5-10.1); Creatinine, Blood 1.52 mg/dL (0.40-1.00); Globulin, Blood 3.8 g/dL (2.2-4.0); Magnesium, Blood 2.5 mg/dL (1.6-2.4); Total Protein, Blood 6.9 g/dL (6.4-8.2)
[2022-07-21 23:48] LABS: Influenza A, PCR NEGATIVE (NEGATIVE); Influenza B, PCR NEGATIVE (NEGATIVE); Resp Syncytial Virus, PCR NEGATIVE (NEGATIVE); SARS-Cov-2 (COVID-19) PCR, MMC NEGATIVE (NEGATIVE)
--- NOTE | 2022-07-22 02:00 | NUR ---
Pt arrived to ICU-5 at 1:30am via stretcher from ED. Received report from Alyce CHEEMA. Pt is A&O x 4, follows commands, c/o slight chest pain/soreness. ST on monitor, with BP normotensive. Edema to BLE. Pt currently wearing Bipap 14/8 FiO2 at 40% with O2 sats >90%. While trying to admit pt and reposition her, she had 4-5 loose BM's. Sample sent to lab. IV to left upper arm and right forearm.
[2022-07-22 02:38] LABS: Source, Urine Foley catheter
[2022-07-22 02:48] LABS: Bilirubin, Urine Neg (Neg); Blood, Urine 2+ (Neg); Glucose Qualitative, Urine Neg (Neg); Ketones, Urine Neg (Neg); Leukocyte Esterase, Urine Neg (Neg); Nitrite, Urine Neg (Neg); Protein, Urine 1+ (Neg); Specific Gravity, Urine 1.015 (1.003-1.022); Urobilinogen, Urine NORM (Normal)
[2022-07-22 03:05] LABS: Appearance, Urine Clear (Clear); Color, Urine Pale Yellow (P-Yellow)
[2022-07-22 03:08] LABS: Amorphous Light (0-Heavy); Bacteria Rare /hpf; Red Blood Cells, Urine 0-2 /hpf (0-2); Squamous Epithelial Cells Not Seen /hpf (Few); Transitional Epithelial Cells Few /hpf (0-Rare); White Blood Cells, Urine 0-2 /hpf (0-5)
[2022-07-22] MEDS ORDERED: IMODIUM A-D2 M1 PO (03:19)
[2022-07-22] MEDS ORDERED: PROBIOTIC1 EA13 PO (03:20)
[2022-07-22 03:27] LABS: BASOPHILS ABSOLUTE AUTO 0.03 K/mm3 (0.00-0.23); BASOPHILS PERCENT AUTO 0 % (0-2); EOSINOPHILS ABSOLUTE AUTO 0.02 K/mm3 (0.00-0.68); EOSINOPHILS PERCENT AUTO 0 % (0-6); Hematocrit 43.6 % (33.0-51.0); Hemoglobin 14.1 g/dL (11.5-16.0); IMMATURE GRAN ABSOLUTE AUTO 0.04 K/mm3 (0.00-0.10); IMMATURE GRAN PERCENT AUTO 0 % (0-1); LYMPHOCYTES ABSOLUTE AUTO 0.73 K/mm3 (0.84-5.20); LYMPHOCYTES PERCENT AUTO 5 % (21-46); MONOCYTES PERCENT AUTO 4 % (4-13); Mean Corpuscular HGB 28.9 pg (26.0-34.0); Mean Corpuscular HGB Conc 32.3 g/dL (31.5-36.5); Mean Corpuscular Volume 89 fL (80-100); NEUTROPHILS ABSOLUTE AUTO 12.39 K/mm3 (1.96-9.15); NEUTROPHILS PERCENT AUTO 90 % (41-73); Platelet Count 248 K/mm3 (150-400); RDW Coefficient Variation 13.8 % (11.7-14.2); RDW Standard Deviation 45.2 fL (35.1-46.3); Red Blood Cell Count 4.88 M/mm3 (3.80-5.20); White Blood Cell Count 13.81 K/mm3 (4.00-11.30)
[2022-07-22 03:29] LABS: pH Blood Venous 7.27 (7.34-7.37)
[2022-07-22 03:30] LABS: Base Excess Venous -10.9 mmol/L; Bicarbonate Venous 16.3 mmol/L (24.0-30.0); PCO2 Venous 34.6 mmHg (38-42)
[2022-07-22 03:55] LABS: Albumin, Blood 3.1 g/dL (3.4-5.0); Albumin/Globulin Ratio 0.8 (0.8-1.8); Bilirubin, Total 0.3 mg/dL (0.1-1.0); Bun/Creatinine Ratio 17.3 (12.0-20.0); Calcium, Blood 7.9 mg/dL (8.5-10.1); Creatinine, Blood 1.62 mg/dL (0.40-1.00); Globulin, Blood 3.9 g/dL (2.2-4.0); Magnesium, Blood 1.9 mg/dL (1.6-2.4); Potassium, Blood 3.5 mmol/L (3.5-5.5)
[2022-07-22 04:11] LABS: Campylobacter Sp Not Detected (NOT DETECT)
[2022-07-22 04:12] LABS: Adenovirus F 40/41 Not Detected (NOT DETECT); Astrovirus Not Detected (NOT DETECT); Cryptosporidium Not Detected (NOT DETECT); Cyclospora Cayetanensis Not Detected (NOT DETECT); E. Coli O157 Not Detected (NOT DETECT); Entamoeba Histolytica Not Detected (NOT DETECT); Enteroaggregative E. coli-EAEC Not Detected (NOT DETECT); Enteropathogenic E. coli-EPEC Not Detected (NOT DETECT); Enterotoxigenic E. coli-ETEC Not Detected (NOT DETECT); Giardia Lamblia Not Detected (NOT DETECT); Norovirus GI/GII Not Detected (NOT DETECT); Plesiomonas Shigelloides Not Detected (NOT DETECT); Rotavirus A Not Detected (NOT DETECT); Salmonella Sp Not Detected (NOT DETECT); Sapovirus Not Detected (NOT DETECT); Shiga Toxin-prod E. coli-STEC Not Detected (NOT DETECT); Shigella/Enteroin E. coli-EIEC Not Detected (NOT DETECT); Vibrio Cholerae Not Detected (NOT DETECT); Vibrio Sp Not Detected (NOT DETECT); Yersinia Enterocolitica Not Detected (NOT DETECT)
--- NOTE | 2022-07-22 07:18 | NUR ---
Shift summary: Pt admitted overnight and slept well after she got settled into her room. Neuro: A&Ox4. C/O chest soreness, she thinks from the CPR. Cardiac: ST/SR 80-110s. BP WNL. Slight temp this morning, T-max 100.5, PRN tylenol given. Resp: Wore bipap all night. 14/8 35%. This morning pt wanted a break and was satting 98% on 2L NC. diminished lungs throughout, no complaints of SOB currently. GI/: ADA diet, ACHS, has a colindres draining dilute urine. Output was ~2L. she also had diarrhea 6 times, but GI PCR came back negative. Skin: Intact, blanchable redness to the bridge of her nose and jagdeep-area. Other: 2 PIVs. Plan for echo today. Trop and lactic trending down.
--- NOTE | 2022-07-22 10:11 | NUR ---
CARE OF PT ASSUMED AT 0700. PT SLEEPING, AROUSES TO VOICE. ALERT AND OX3. PT PALE, CLAMMY. PT C/O PAIN 5/10 TO MID CHEST 2ND TO CPR; PAIN W MOVEMENT ONLY. PT WAS GIVEN TYLENOL FOR LOW GRADE TEMP, PT STATES THAT HELPED W PAIN WELL. PT INCONTINENT OF LIQUID STOOL. DR MARTINEZ AND DR ZIEGLER AT BEDSIDE THIS AM. ECHO IN PROGRESS NOW.
--- NOTE | 2022-07-22 11:12 | NUR ---
CALL RECIEVED FROM DR MARTINEZ. BP AND LABS REVIEWED. ORDER FOR EKG NOW AND DAILY TO EVALUATE PROLONGED QTC. ECHO COMPLETE. CHANGES MAY BE MADE TO LOPRESSOR AFTER ECHO REVIEWED. BP HYPOTENSIVE, 95/52 W MAP 61, DR MARTINEZ NOTIFIED, WILL NOTIFY HOSPITALIST AND CONT TO MONITOR.
--- NOTE | 2022-07-22 14:28 | NUR ---
DR MARTINEZ IN AT 1230. REPEAT EKG SHOWN TO DR MARTINEZ. ORDERS RECIEVED TO GIVE TOPROL XL 25MG W HOLDING PARAMETERS, THEN TO GIVE TOPROL XL 50MG DAILY STARTING TOMORROW. DR MARTINEZ SUGGESTED DECREASING LASIX, THIS WAS RELAYED TO DR ZIEGLER. PT DID BECOME A LITTLE NAUSEATED AFTER LUNCH, ZOFRAN HELD D/T PROLONGED QTC. PT STATES NAUSEA NOW IMPROVED. STATES PAIN IS TOLERERABLE TO CHEST; 2ND TO CPR. BP REMAINS SOFT W MAP >65
--- NOTE | 2022-07-22 16:33 | NUR ---
POWERGLIDE PLACED. HR 110-130. PT C/O SAME MID CHEST PAIN THIS AM WITH SOME PAIN THAT IS RAIDIATING INTO BACK. DR MARTINEZ CALLED AND NOTIFIED. ORDER PLACED FOR LOPRESSOR 12.5MG. DR ZIEGLER CALLED FOR PAIN MEDICATION, ORDER TO BE PLACED. BP STABLE.
--- NOTE | 2022-07-22 17:39 | NUR ---
DR MOJICA AT BEDSIDE TO CHECK ON PT. VICODIN ORDERED AND GIVEN FOR PAIN. PT IS VERY ANXIOUS AND A LITTLE TEARFUL, PT OFFERED SUPPORT, COMFORT, AND DIRECTOR OF OUTPATIENT SERVICES.
[2022-07-23 05:33] LABS: BASOPHILS ABSOLUTE AUTO 0.03 K/mm3 (0.00-0.23); BASOPHILS PERCENT AUTO 0 % (0-2); EOSINOPHILS PERCENT AUTO 0 % (0-6); Hematocrit 33.7 % (33.0-51.0); Hemoglobin 11.6 g/dL (11.5-16.0); IMMATURE GRAN ABSOLUTE AUTO 0.14 K/mm3 (0.00-0.10); IMMATURE GRAN PERCENT AUTO 1 % (0-1); LYMPHOCYTES ABSOLUTE AUTO 1.01 K/mm3 (0.84-5.20); LYMPHOCYTES PERCENT AUTO 6 % (21-46); MONOCYTES ABSOLUTE AUTO 0.73 K/mm3 (0.16-1.47); MONOCYTES PERCENT AUTO 4 % (4-13); Mean Corpuscular HGB 29.3 pg (26.0-34.0); Mean Corpuscular HGB Conc 34.4 g/dL (31.5-36.5); Mean Corpuscular Volume 85 fL (80-100); NEUTROPHILS ABSOLUTE AUTO 16.41 K/mm3 (1.96-9.15); NEUTROPHILS PERCENT AUTO 90 % (41-73); Platelet Count 236 K/mm3 (150-400); RDW Coefficient Variation 14.2 % (11.7-14.2); RDW Standard Deviation 43.9 fL (35.1-46.3); Red Blood Cell Count 3.96 M/mm3 (3.80-5.20); White Blood Cell Count 18.32 K/mm3 (4.00-11.30)
[2022-07-23 06:14] LABS: Bun/Creatinine Ratio 20.7 (12.0-20.0); Calcium, Blood 8.4 mg/dL (8.5-10.1); Creatinine, Blood 1.93 mg/dL (0.40-1.00); Potassium, Blood 3.9 mmol/L (3.5-5.5)
--- NOTE | 2022-07-23 06:25 | NUR ---
Shift summary: Pt slept well and had an uneventful night. Neuro: A&Ox4. C/O chest soreness secondary to previous CPR. MUÑIZ, independent in bed. Cardiac: ST low 100-110s. BP WNL. QTc this morning on 12-lead EKG was 498. Resp: No C/O SOB, lung sounds clear/diminished and remained on 2L NC while she slept. O2 sats >96% GI/: ADA diet, ACHS, has a colindres draining dilute urine. Output was 800ml. No BM overnight. Unclear plan of whether she's going to shift lab technician today or not. Will pass on to day shift RN.
--- NOTE | 2022-07-23 10:01 | NUR ---
CARE OF PT ASSUMED AT 0700. PT AWAKE AND ALERT. C/O LOCALIZED MID CHEST PAIN 5/10. PT HAS MILD PRODUCTIVE COUGH, SPUTUM TO BE OBTAINED. SATS >90% ON 2L VIA N/C. DR MARTINEZ AND DR ZIEGLER IN TO SEE PT THIS AM. DR MARTINEZ CONSENTED PT FOR ANGIOGRAM TOMORROW. EKG REVIEWED W DR MARTINEZ.LOVENOX CHANGED TO HEPARIN. LASIX DC'D. BP IMPROVED TODAY, NSR TO AFLUTTER, RATE 90-130. NORCO TO BE GIVEN FOR PAIN.
--- NOTE | 2022-07-23 16:34 | NUR ---
AROUND 1515 PT BECAME TACHYCARDIC, SOB, HYPERTENSIVE AFTER TRANSFERING FROM CHAIR TO BED. PT WAS HYPERVENTILATING RATE 40'S, LIPS SLIGHTLY BLUE. PT APPEARED TO BE VERY ANXIOUS AND BECAME TEARFUL. 2L VIA N/C PLACED ON PT, PT CALMED/REASSURED. DR MARTINEZ CALLED AND UPDATED. DR BOURNE AND DR ZIEGLER ALSO CALLED AND UPDATED. XANAX PO X ONE WAS ORDERED BUT NOT GIVEN YET PT WAS ABLE TO RELAX AND TAKE A NAP. HR AROUND 110 BP MILDLY ELEVATED, SATS 98%. PT TO REMAIN BEDREST UNTIL AFTER PCI TOMORROW PER DR MARTINEZ.
--- NOTE | 2022-07-23 22:49 | NUR ---
Pt C/O chest pressure, SOB, headache and nausea. BP elevated despite prn hydralazine given and increase in HR. Rhythm changes noticed and did a 12 lead EKG. Spoke with Dr. Hallman and he came to bedside to assess pt. PRN metoprolol given for HR and BP, increase oxygen from 2L NC to 4L NC. Will continue to monitor.
[2022-07-24 04:24] LABS: BASOPHILS ABSOLUTE AUTO 0.02 K/mm3 (0.00-0.23); BASOPHILS PERCENT AUTO 0 % (0-2); EOSINOPHILS ABSOLUTE AUTO 0.04 K/mm3 (0.00-0.68); EOSINOPHILS PERCENT AUTO 0 % (0-6); Hematocrit 35.5 % (33.0-51.0); Hemoglobin 12.1 g/dL (11.5-16.0); IMMATURE GRAN ABSOLUTE AUTO 0.13 K/mm3 (0.00-0.10); IMMATURE GRAN PERCENT AUTO 1 % (0-1); LYMPHOCYTES ABSOLUTE AUTO 1.93 K/mm3 (0.84-5.20); LYMPHOCYTES PERCENT AUTO 11 % (21-46); MONOCYTES ABSOLUTE AUTO 0.85 K/mm3 (0.16-1.47); MONOCYTES PERCENT AUTO 5 % (4-13); Mean Corpuscular HGB 29.4 pg (26.0-34.0); Mean Corpuscular HGB Conc 34.1 g/dL (31.5-36.5); Mean Corpuscular Volume 86 fL (80-100); Mean Platelet Volume 10.1 fL (9.1-12.4); NEUTROPHILS ABSOLUTE AUTO 14.58 K/mm3 (1.96-9.15); NEUTROPHILS PERCENT AUTO 83 % (41-73); Platelet Count 279 K/mm3 (150-400); RDW Coefficient Variation 14.6 % (11.7-14.2); RDW Standard Deviation 46.8 fL (35.1-46.3); Red Blood Cell Count 4.11 M/mm3 (3.80-5.20); White Blood Cell Count 17.55 K/mm3 (4.00-11.30)
[2022-07-24 04:38] LABS: Bun/Creatinine Ratio 28.1 (12.0-20.0); Calcium, Blood 9.1 mg/dL (8.5-10.1); Creatinine, Blood 1.6 mg/dL (0.40-1.00)
--- NOTE | 2022-07-24 05:51 | NUR ---
Shift summary: Neuro: A&Ox4. Pt seems rather anxious - PRN xanax given once. Cardiac: ST low 110-120s. BP elevated all night. Multiple PRN medications given with minimal success at decreasing over time. C/O chest pressure once during shift and headache when BP was elevated, PRN norco given. Resp: C/O SOB, lung sounds clear in bilateral upper lobes and crackles can be heard in bilateral bases. Increased oxygen from 2L NC to 4L with O2 sats 92%. GI/: NPO since midnight for procedure today. ACHS CBGs. Stinson draining clear yellow urine. No BM overnight.
--- NOTE | 2022-07-24 08:00 | NUR ---
Assumed care of pt at 0700. She has been NPO since midnight for a planned angiogram today, no scheduled time at this point. Pt has been hypertensive overnight. On 4 lpm o2 via NC w/ colindres cath in place, A&Ox4.
--- NOTE | 2022-07-24 09:20 | NUR ---
PT TAKEN TO [facility] TRANSPORT MONITOR.
--- NOTE | 2022-07-24 10:30 | NUR ---
Pt returned to ICU # 5 from geoscience laboratory technician. TR Band in place right radial at 12 ml air at 1011. Pt on 3 lpm o2 via NC w/ no acute complaints.
--- NOTE | 2022-07-24 15:09 | NUR ---
Son brought Pristiq from the outside pharmacy to pt room. RN sent medication to pharmacy so pt will be able to take this medication while in the hospital.
--- NOTE | 2022-07-24 17:48 | NUR ---
Called report to Merissa CHEEMA for U #5. Advised that pt had a TR Band on right wrist from label stitcher this morning. Pt on 3 lpm o2 via NC, had worked with PT/OT who advised pt to sit in a recliner during meals. Just removed air, currently at 2 ml air at 1745. RN will transport pt to U #5 w/ belongings and medications.
--- NOTE | 2022-07-24 18:22 | NUR ---
PT ARRIVES FROM ICU AT THIS TIME. TR BAND REMOVED AND TEGADERM PLACED OVERSITE. PT. HAS MINIMAL BRUSING ABOVE SITE, HOWEVER SITE IS NON TENDER WITH NO OOZING OR SWELLING AT THIS TIME. ARM BOARD IN PLACE PT REMINDER. TR BAND INTRUCTIONS REVIEWED. PT. VSS UPON TRANSFER. ABLE TO STAND AND TRANSFER VIA WHEELCHAIR INTO PCU BED. HUERTA IN PLACE DRAINING TO GRAVITY. NADN AT THIS TIME. REPORT TO ONCOMING RN.
--- NOTE | 2022-07-24 21:03 | NUR ---
UPDATE: PT WITH 17 BEAT RUN OF SVT @2029. ASYMPTOMATIC. VSS. AWARE.
[2022-07-25 04:08] LABS: BASOPHILS ABSOLUTE AUTO 0.02 K/mm3 (0.00-0.23); BASOPHILS PERCENT AUTO 0 % (0-2); EOSINOPHILS ABSOLUTE AUTO 0.29 K/mm3 (0.00-0.68); EOSINOPHILS PERCENT AUTO 2 % (0-6); Hematocrit 34.3 % (33.0-51.0); Hemoglobin 11.3 g/dL (11.5-16.0); IMMATURE GRAN ABSOLUTE AUTO 0.08 K/mm3 (0.00-0.10); IMMATURE GRAN PERCENT AUTO 1 % (0-1); LYMPHOCYTES ABSOLUTE AUTO 1.77 K/mm3 (0.84-5.20); LYMPHOCYTES PERCENT AUTO 14 % (21-46); MONOCYTES ABSOLUTE AUTO 0.59 K/mm3 (0.16-1.47); MONOCYTES PERCENT AUTO 5 % (4-13); Mean Corpuscular HGB 28.8 pg (26.0-34.0); Mean Corpuscular HGB Conc 32.9 g/dL (31.5-36.5); Mean Corpuscular Volume 87 fL (80-100); NEUTROPHILS ABSOLUTE AUTO 9.54 K/mm3 (1.96-9.15); NEUTROPHILS PERCENT AUTO 78 % (41-73); Platelet Count 265 K/mm3 (150-400); RDW Coefficient Variation 14.5 % (11.7-14.2); RDW Standard Deviation 46.5 fL (35.1-46.3); Red Blood Cell Count 3.93 M/mm3 (3.80-5.20); White Blood Cell Count 12.29 K/mm3 (4.00-11.30)
[2022-07-25 04:23] LABS: Bun/Creatinine Ratio 29.6 (12.0-20.0); Creatinine, Blood 1.35 mg/dL (0.40-1.00); Magnesium, Blood 1.9 mg/dL (1.6-2.4); Potassium, Blood 4.2 mmol/L (3.5-5.5)
--- NOTE | 2022-07-25 05:00 | NUR ---
SHIFT SUMMARY: PT ALERT AND ORIENTED X4, ABLE TO FOLLOW COMMANDS AND MAKE NEEDS KNOWN. PT HYPERTENSIVE W/ SYS IN 170'S. MEDICATED PER EMAR WITH GOOD RESULTS. BP SYS NOW 140'S. HR SR-ST 90'S-100'S. AFEBRILE. PT ON 2L NC AT BEGINNING OF SHIFT. THROUGHOUT THE NIGHT PT NEEDING ADDITIONAL O2 WITH INCREASED WORK OF BREATHING, WHEEZES NOTED THROUGHOUT. CALL PLACED TO MD, ORDER OF 20MG IV LASIX RECEIVED. PT STATES IMPROVED BREATHING. HUERTA CATH IN PLACE, APRROX 700 ML OF YELLOW/CLEAR URINE OUT THIS SHIFT. +2 EDEMA NOTED IN BLE. 1 BM THIS SHIFT. PT ABLE TO REPOS IND IN BED. SLEEP STUDY IN PROGRESS. BED IN LOW, CALL LIGHT IN REACH, WILL REPORT TO ONCOMING RN.
--- NOTE | 2022-07-26 04:30 | NUR ---
SHIFT SUMMARY: PT REMAINS ALERT AND ORIENTED X4, ABLE TO FOLLOW COMMANDS AND MAKE NEEDS KNOWN. BP AND HR STABLE. AFEBRILE. SATURATIONS >95% ON 3L NC. RESPIRATIONS EVEN AND UNLABORED AT REST, PT STATES SOB WITH ACTIVITY. PULSES STRONG THROUGHOUT. HUERTA CATH D/C AT BEGINNING OF SHIFT, INC OF BOTH URINE AND BOWEL. +1 EDEMA NOTED IN BLE. PT ABLE TO REPOS IND IN BED. NO ACUTE EVENTS OVERNIGHT. BED IN LOW, CALL LIGHT IN REACH, WILL REPORT TO ONCOMING RN.
[2022-07-26 08:56] LABS: BASOPHILS ABSOLUTE AUTO 0.05 K/mm3 (0.00-0.23); BASOPHILS PERCENT AUTO 1 % (0-2); EOSINOPHILS ABSOLUTE AUTO 0.33 K/mm3 (0.00-0.68); EOSINOPHILS PERCENT AUTO 4 % (0-6); Hematocrit 37.2 % (33.0-51.0); Hemoglobin 12.6 g/dL (11.5-16.0); IMMATURE GRAN ABSOLUTE AUTO 0.06 K/mm3 (0.00-0.10); IMMATURE GRAN PERCENT AUTO 1 % (0-1); LYMPHOCYTES ABSOLUTE AUTO 1.41 K/mm3 (0.84-5.20); LYMPHOCYTES PERCENT AUTO 18 % (21-46); MONOCYTES ABSOLUTE AUTO 0.67 K/mm3 (0.16-1.47); MONOCYTES PERCENT AUTO 8 % (4-13); Mean Corpuscular HGB 29.3 pg (26.0-34.0); Mean Corpuscular HGB Conc 33.9 g/dL (31.5-36.5); Mean Corpuscular Volume 87 fL (80-100); NEUTROPHILS ABSOLUTE AUTO 5.55 K/mm3 (1.96-9.15); NEUTROPHILS PERCENT AUTO 69 % (41-73); Platelet Count 282 K/mm3 (150-400); RDW Coefficient Variation 14.2 % (11.7-14.2); RDW Standard Deviation 44.7 fL (35.1-46.3); White Blood Cell Count 8.07 K/mm3 (4.00-11.30)
[2022-07-26 09:14] LABS: Bun/Creatinine Ratio 34.1 (12.0-20.0); Calcium, Blood 9.1 mg/dL (8.5-10.1); Creatinine, Blood 1.23 mg/dL (0.40-1.00); Potassium, Blood 4.1 mmol/L (3.5-5.5)
[2022-07-26] MEDS ORDERED: ELIQUIS5 M2 PO (14:35)
[2022-07-26] MEDS ORDERED: FURO40 PO (14:35)
== END 2022-07-26 16:10 | disposition home health service (06) | DRG 871 ==
LOC: ER 21:56 → ICUW 23:49 → ICUE 23:49 → PCU 07-24 18:07
PROVIDERS: Emergency Medicine; Family Medicine; Nurse Practitioner Acute Care; ADMIT Family Medicine
PROC: 3E03329 Introduction of Other Anti-infective into Peripheral Vein, Percutaneous Approach (ICD-10-PCS; 2022-07-21)
PROC: 5A12012 Performance of Cardiac Output, Single, Manual (ICD-10-PCS; 2022-07-21)
PROC: 5A09357 Assistance with Respiratory Ventilation, Less than 24 Consecutive Hours, Continuous Positive Airway Pressure (ICD-10-PCS; 2022-07-21)
PROC: 4A023N7 Measurement of Cardiac Sampling and Pressure, Left Heart, Percutaneous Approach (ICD-10-PCS; principal; 2022-07-24)
PROC: B2111ZZ Fluoroscopy of Multiple Coronary Arteries using Low Osmolar Contrast (ICD-10-PCS; 2022-07-24)
PROC: B240ZZ3 Ultrasonography of Single Coronary Artery, Intravascular (ICD-10-PCS; 2022-07-24)
DX: A41.9 Sepsis, unspecified organism (principal); I46.8 Cardiac arrest due to other underlying condition; I50.41 Acute combined systolic (congestive) and diastolic (congestive) heart failure; J18.9 Pneumonia, unspecified organism; J96.01 Acute respiratory failure with hypoxia; N17.9 Acute kidney failure, unspecified; I48.92 Unspecified atrial flutter; I13.0 Hypertensive heart and chronic kidney disease with heart failure and stage 1 through stage 4 chronic kidney disease, or unspecified chronic kidney disease; I24.8 Other forms of acute ischemic heart disease; J44.1 Chronic obstructive pulmonary disease with (acute) exacerbation; J44.0 Chronic obstructive pulmonary disease with (acute) lower respiratory infection; E87.20 Acidosis, unspecified; R65.20 Severe sepsis without septic shock; K80.20 Calculus of gallbladder without cholecystitis without obstruction; F32.9 Major depressive disorder, single episode, unspecified; I27.20 Pulmonary hypertension, unspecified; I08.1 Rheumatic disorders of both mitral and tricuspid valves; E11.51 Type 2 diabetes mellitus with diabetic peripheral angiopathy without gangrene; E11.22 Type 2 diabetes mellitus with diabetic chronic kidney disease; F41.9 Anxiety disorder, unspecified; N18.30 Chronic kidney disease, stage 3 unspecified; E78.5 Hyperlipidemia, unspecified; M54.30 Sciatica, unspecified side; I25.10 Atherosclerotic heart disease of native coronary artery without angina pectoris; I44.7 Left bundle-branch block, unspecified; R94.31 Abnormal electrocardiogram [ECG] [EKG]; Z20.822 Contact with and (suspected) exposure to COVID-19; Z88.5 Allergy status to narcotic agent; Z79.899 Other long term (current) drug therapy; Z79.82 Long term (current) use of aspirin; Z79.891 Long term (current) use of opiate analgesic; Z90.710 Acquired absence of both cervix and uterus; Z98.890 Other specified postprocedural states; Z87.891 Personal history of nicotine dependence; Z91.040 Latex allergy status
CPT/HCPCS: 0241U; 36415; 36416; 51702; 71045; 71260; 76937; 80047; 80048; 80053; 81001; 82803; 82947; 83605; 83735; 83880; 84145; 84484; 85014; 85025; 87040; 87507; 93005; 93010; 93306; 93454; 94640; 94644; 94660; 94664; 94761; 94762; 96374-59; 96375-59; 97110; 97116; 97162; 97166; 97530; 97535; 99152; 99153; 99291-25; A9270; C1751; C1769; C1887; C1894; J0282; J0360; J0456; J0696; J1644; J1650; J1940; J2250; J2765; J2930; J3010; J7030; J7050; Q9967

== ENCOUNTER → 2022-08-18 | Outpatient (CLI) | payer MEDICARE ==
[~2022-08-18] MED LIST changes: +ELIQUIS5 M2 PO; +FURO40 PO; +IMODIUM A-D2 M1 PO; +ONDA4ODT SL; +PROBIOTIC1 EA13 PO
[2022-08-19 22:03] LABS: Creatinine Urine 55.3 mg/dL (27.00-270.00); Microalbumin, Urine Quant. 27.4 mg/L (0.000-20.000); Protein, Urine Quantitative 11.1 mg/dL (0.0-11.9)
== END | disposition home or self-care (01) ==
LOC: LAB 15:56 → LAB SHORT 15:56
PROVIDERS: Internal Medicine Nephrology
DX: N18.30 Chronic kidney disease, stage 3 unspecified (principal); D63.1 Anemia in chronic kidney disease; N25.81 Secondary hyperparathyroidism of renal origin; E55.9 Vitamin D deficiency, unspecified; E78.00 Pure hypercholesterolemia, unspecified; D50.9 Iron deficiency anemia, unspecified; D51.8 Other vitamin B12 deficiency anemias; D52.8 Other folate deficiency anemias; R76.9 Abnormal immunological finding in serum, unspecified; R94.5 Abnormal results of liver function studies; R94.6 Abnormal results of thyroid function studies
CPT/HCPCS: 81050; 82043; 82570; 84156

== ENCOUNTER 2025-04-23 20:52 | Observation (INO) | payer OTHER ==
[~2025-04-23] VITALS: Ht 157.5 cm; Wt 72.2 kg
[~2025-04-23 20:52] MED LIST changes: -LOSA25 PO; +LOSA50 PO
[2025-04-23 21:48] LABS: BASOPHILS ABSOLUTE AUTO 0.05 K/mm3 (0.00-0.23); BASOPHILS PERCENT AUTO 1 % (0-2); EOSINOPHILS ABSOLUTE AUTO 0.29 K/mm3 (0.00-0.68); EOSINOPHILS PERCENT AUTO 4 % (0-6); Hematocrit 44.0 % (33.0-51.0); Hemoglobin 15.2 g/dL (11.5-16.0); IMMATURE GRAN ABSOLUTE AUTO 0.01 K/mm3 (0.00-0.10); IMMATURE GRAN PERCENT AUTO 0 % (0-1); LYMPHOCYTES ABSOLUTE AUTO 2.57 K/mm3 (0.84-5.20); LYMPHOCYTES PERCENT AUTO 32 % (21-46); MONOCYTES ABSOLUTE AUTO 0.76 K/mm3 (0.16-1.47); MONOCYTES PERCENT AUTO 9 % (4-13); Mean Corpuscular HGB Conc 34.5 g/dL (31.5-36.5); Mean Corpuscular Volume 84 fL (80-100); NEUTROPHILS ABSOLUTE AUTO 4.46 K/mm3 (1.96-9.15); NEUTROPHILS PERCENT AUTO 55 % (41-73); NRBC ABSOLUTE 0.00 K/mm3 (0.00-0.02); NRBC Auto 0.0 /100 WBC (0.0-0.2); Platelet Count 206 K/mm3 (150-400); RDW Coefficient Variation 13.2 % (11.7-14.2); RDW Standard Deviation 40.3 fL (35.1-46.3)
[2025-04-23 22:06] LABS: Alanine Aminotransfer (ALT/SGP 29.0 U/L (12-78); Albumin, Blood 3.8 g/dL (3.4-5.0); Albumin/Globulin Ratio 1.2 (0.8-1.8); Anion Gap 10.0 mmol/L (3-11); Aspartate Aminotrans (AST/SGOT 26.0 U/L (12-37); Bilirubin, Total 0.5 mg/dL (0.1-1.0); Blood Urea Nitrogen 27.0 mg/dL (8-24); CO2, Blood 24.0 mmol/L (21-32); Calcium, Blood 9.9 mg/dL (8.5-10.1); Chloride, Blood 108.0 mmol/L (98-108); Creatinine, Blood 1.54 mg/dL (0.40-1.00); Globulin, Blood 3.3 g/dL (2.2-4.0); Glucose, Blood 128.0 mg/dL (70-99); Potassium, Blood 3.8 mmol/L (3.5-5.5); Sodium, Blood 138.0 mmol/L (136-145); Total Protein, Blood 7.1 g/dL (6.4-8.2)
[2025-04-24] VITALS (61 sets, daily range): BP systolic 102–248; BP diastolic 48–162
[2025-04-24] MEDS ORDERED: FLU VACC TS2025-26(6MOS UP)/PF 45 MCG/0.5 ML SYRINGE IM SCH (02:50)
[2025-04-24] MEDS ORDERED: Morphine Sulfate 4 MG/1 ML Injection IV PRN (03:15)
[2025-04-24] MEDS ORDERED: Ondansetron HCl 2 MG / ML 2ML Vial ONE (03:55)
[2025-04-24] MEDS ORDERED: Ondansetron HCl 2 MG / ML 2ML Vial IV PRN (04:05)
[2025-04-24] MEDS ORDERED: Polyethylene Glycol 3350 17 gm PO ONE (07:05)
[2025-04-24 08:44] LABS: Alanine Aminotransfer (ALT/SGP 29.0 U/L (12-78); Albumin, Blood 3.4 g/dL (3.4-5.0); Albumin/Globulin Ratio 1.0 (0.8-1.8); Anion Gap 10.0 mmol/L (3-11); Aspartate Aminotrans (AST/SGOT 29.0 U/L (12-37); Bilirubin, Total 0.4 mg/dL (0.1-1.0); Blood Urea Nitrogen 26.0 mg/dL (8-24); CO2, Blood 22.0 mmol/L (21-32); Calcium, Blood 9.4 mg/dL (8.5-10.1); Chloride, Blood 109.0 mmol/L (98-108); Creatinine, Blood 1.37 mg/dL (0.40-1.00); Globulin, Blood 3.4 g/dL (2.2-4.0); Glucose, Blood 184.0 mg/dL (70-99); Potassium, Blood 4.8 mmol/L (3.5-5.5); Sodium, Blood 136.0 mmol/L (136-145); Total Protein, Blood 6.8 g/dL (6.4-8.2)
[2025-04-24 08:57] LABS: BASOPHILS ABSOLUTE AUTO 0.03 K/mm3 (0.00-0.23); BASOPHILS PERCENT AUTO 0 % (0-2); EOSINOPHILS ABSOLUTE AUTO 0.01 K/mm3 (0.00-0.68); EOSINOPHILS PERCENT AUTO 0 % (0-6); Hematocrit 44.0 % (33.0-51.0); Hemoglobin 14.7 g/dL (11.5-16.0); IMMATURE GRAN ABSOLUTE AUTO 0.03 K/mm3 (0.00-0.10); IMMATURE GRAN PERCENT AUTO 0 % (0-1); LYMPHOCYTES ABSOLUTE AUTO 1.51 K/mm3 (0.84-5.20); LYMPHOCYTES PERCENT AUTO 16 % (21-46); MONOCYTES ABSOLUTE AUTO 0.08 K/mm3 (0.16-1.47); MONOCYTES PERCENT AUTO 1 % (4-13); Mean Corpuscular HGB Conc 33.4 g/dL (31.5-36.5); Mean Corpuscular Volume 85 fL (80-100); NEUTROPHILS ABSOLUTE AUTO 8.06 K/mm3 (1.96-9.15); NEUTROPHILS PERCENT AUTO 83 % (41-73); NRBC ABSOLUTE 0.00 K/mm3 (0.00-0.02); NRBC Auto 0.0 /100 WBC (0.0-0.2); Platelet Count 194 K/mm3 (150-400); RDW Coefficient Variation 13.3 % (11.7-14.2); RDW Standard Deviation 41.6 fL (35.1-46.3)
[2025-04-24] MEDS ORDERED: Polyethylene Glycol 3350 17 gm PO PRN (09:00)
[2025-04-24] MEDS ORDERED: DESVENLAFAXINE100 M3 PO (09:07)
[2025-04-24] MEDS ORDERED: XANAX0.25 MG PO (09:07)
[2025-04-24] MEDS ORDERED: PANTOPRAZOLE SO40 M2 PO (09:08)
[2025-04-24] MEDS ORDERED: SPIRONOLACTONE25 MG PO (09:09)
[2025-04-24] MEDS ORDERED: EUTHYROX25 MC1 PO (09:09)
[2025-04-24] MEDS ORDERED: HydrALAZINE HCl 20 MG / ML 1ML Vial IV PRN ×2 (09:35→15:45)
[2025-04-24] MEDS ORDERED: Labetalol HCL 5 MG/ML 4ML Injection (Single Dose) IV PRN ×3 (10:15→13:35)
[2025-04-24] MEDS ORDERED: ALPR.25 PO (10:29)
[2025-04-24] MEDS ORDERED: FERSU300 PO (10:30)
[2025-04-24] MEDS ORDERED: QUET25 PO (10:30)
[2025-04-24] MEDS ORDERED: CO Q10100 MG PO (10:31)
[2025-04-24] MEDS ORDERED: Vitamin D PO (10:32)
[2025-04-24] MEDS ORDERED: Ondansetron 4 MG SoluTab SL PRN (12:50)
--- NOTE | 2025-04-24 13:29 | NUR ---
ADMIT NOTE PT ARRIVED TO PCU FROM ED VIA ED STRETCHER AT APPROX 0900. PT WAS SLID TO PCU BED. PT ALERT, ABLE TO ANSWER ORIENTATION QUESTIONS APPROPRIATELY AND MAKE NEEDS KNOWN. PT'S SON ENDORSES PT DEVELOPING DEMENTIA. SP02>90% ON RA, PLACED ON 2L NC IN ER FOR COMFORT DURING INTERMITTANT CP. DENIES SOB. TELEMETRY SHOWS NSR, HR 50'S-110'S. HTN NOTED, SEE VITALS. MD CABRERA AT BEDSIDE. PT ENDORSES NAUSEA, BEGAN VOMITING CLEAR LIQUID. ZOFRAN GIVEN PER EMAR. HR AND SBP ELEVATED. PT BEGAN ENDORSING CP. MD CABRERA W/ ORDERS FOR 10MG HYDRALAZINE IV, GIVEN PER EMAR. FOLLOWED BY COZAAR PER EMAR. PT ABLE TO TOLERATE PO PILL. NITRO SUBLIQUAL X1 GIVEN FOR CP 03/06 W/ RELIEF TO 3. UPON BP REASSESSMENT, SBP REMAINED >180. 10MG LABETALOL GIVEN PER EMAR W/ SBP SUCCESSFULLY DECREASING, SEE VITALS. PT'S SBP INCREASING ONCE AGAIN. CALL PLACED TO MD CABRERA. MD CABRERA CHANGED TIMING PARAMETERS FOR LABETALOL, Q6H TO Q4H. NOTIFIED MD THAT WOULD NOT FALL INTO 4 HR TIME FRAME UNTIL 1433. ORDERS PLACED FOR PO NORVASC, PT TOLERATED. BP REMAINS ELEVATED, PT ENDORSING NAUSEA BUT NOT CURRENTLY VOMITTING. DENIES CP CURRENTLY. SON IN ROOM, LYNNE, POA. PT ENDORSES BEING DNR. WHEN PLACING DNR WRISTBAND AND CONFIRMING STATUS WITH PT, PT TEARFUL. PT STATES "I KNOW I SHOULD, IM 84, I DONT HAVE MUCH LIFE LEFT". PT INFORMED ABOUT PASTORAL STAFF THAT CAN COME, SIT, AND EXPLORE FEELNGS WITH ENCOURAGEMENT. PT STATES, "OH, I WOULD LOVE THAT." NURSING ASSISTANT FRONT END MANAGER NOTIFIED TO CALL IN PASTORAL CARE. PT AND FAMILY ORIENTED TO ROOM, CALL LIGHT. BED ALARM ON.
[2025-04-24] MEDS ORDERED: Nitroglycerin 1 INCH/GM PKT TOP PRN (15:20)
--- NOTE | 2025-04-24 16:28 | NUR ---
SHIFT SUMMARY AFTER CALLING MD ABOUT ELEVATED BP AND RECEIVING NITRO PASTE ORDER, PT NEXT BP WNL. PT CURRENTLY ASYMPTOMATIC AND SBP LABILE. PT CURRENTLY WATCHING TV IN ROOM, CALL LIGHT IN REACH. REPORT GIVEN TO TIN WHIZ MACHINE OPERATOR.
--- NOTE | 2025-04-24 17:18 | NUR ---
SPOKE WITH DR. LAU VIA PHONE REGARDING PROLONGED QTC AT 0.61 AND LBB, POSSIBLE ST DEPRESSION ON TELEMETRY. EKG WITH NO CHANGE. ELEVATED SBP IN 140-160S ON ASSESMENT. PER MD PLAN FOR LABETALOL PO 50MG BID AND STOP METOPROLOL. NO OTHER ORDERS AT THIS TIME
--- NOTE | 2025-04-24 18:17 | NUR ---
ASSUMPTION OF CARE ASSUMED CARE OF PT @1645 FROM REILLY Panda RN. ASSESSMENT UNCHANGED, AGREE WITH PRIOR BOMBSIGHT SPECIALIST. PT RESTING COMFORTABLY IN BED, DENIES PAIN OR DISCOMFORT. PLEASANT AND COOPEARTIVE. SEE NOTE REGARDING CARDIOLOGY DR. LAU NOTIFICATION, MEDICATIONS CHANGED PER PROVIDER.
[2025-04-24 18:22] LABS: Anion Gap 12.0 mmol/L (3-11); Blood Urea Nitrogen 27.0 mg/dL (8-24); CO2, Blood 24.0 mmol/L (21-32); Calcium, Blood 9.7 mg/dL (8.5-10.1); Chloride, Blood 108.0 mmol/L (98-108); Creatinine, Blood 1.5 mg/dL (0.40-1.00); Glucose, Blood 177.0 mg/dL (70-99); Potassium, Blood 4.5 mmol/L (3.5-5.5); Sodium, Blood 139.0 mmol/L (136-145)
[2025-04-25] VITALS (7 sets, daily range): BP systolic 137–165; BP diastolic 54–63
[2025-04-25 04:15] LABS: BASOPHILS ABSOLUTE AUTO 0.02 K/mm3 (0.00-0.23); BASOPHILS PERCENT AUTO 0 % (0-2); EOSINOPHILS ABSOLUTE AUTO 0.00 K/mm3 (0.00-0.68); EOSINOPHILS PERCENT AUTO 0 % (0-6); Hematocrit 37.7 % (33.0-51.0); Hemoglobin 12.8 g/dL (11.5-16.0); IMMATURE GRAN ABSOLUTE AUTO 0.07 K/mm3 (0.00-0.10); IMMATURE GRAN PERCENT AUTO 0 % (0-1); LYMPHOCYTES ABSOLUTE AUTO 1.79 K/mm3 (0.84-5.20); LYMPHOCYTES PERCENT AUTO 10 % (21-46); MONOCYTES ABSOLUTE AUTO 1.11 K/mm3 (0.16-1.47); MONOCYTES PERCENT AUTO 6 % (4-13); Mean Corpuscular HGB Conc 34.0 g/dL (31.5-36.5); Mean Corpuscular Volume 86 fL (80-100); NEUTROPHILS ABSOLUTE AUTO 15.42 K/mm3 (1.96-9.15); NEUTROPHILS PERCENT AUTO 84 % (41-73); NRBC ABSOLUTE 0.00 K/mm3 (0.00-0.02); NRBC Auto 0.0 /100 WBC (0.0-0.2); Platelet Count 193 K/mm3 (150-400); RDW Coefficient Variation 13.9 % (11.7-14.2); RDW Standard Deviation 43.8 fL (35.1-46.3)
--- NOTE | 2025-04-25 04:25 | NUR ---
ASSUMED CARE OF PT AT 1900. PT IS AWAKE, ALERT AND ORIENTED X 4. FOLLOWS COMMANDS AND USES CALL LIGHT APPROPRIATELY. AMBULATED TO C WITH ONE PERSON ASSIST. PT HAS DIMINISHED UOP. BS COMPLETED AND ONLY 75ML SHOWN. BP STABLE AND HAS NOT REQUIRED AND PRN ANTIHYPERTENSIVES THIS EVENING. ALL OTHER VSS. BED REMAINS IN THE LOWEST POSITION AND CALL LIGHT WITHIN REACH.
[2025-04-25 04:37] LABS: Alanine Aminotransfer (ALT/SGP 25.0 U/L (12-78); Albumin, Blood 3.4 g/dL (3.4-5.0); Albumin/Globulin Ratio 1.3 (0.8-1.8); Anion Gap 10.0 mmol/L (3-11); Aspartate Aminotrans (AST/SGOT 27.0 U/L (12-37); Bilirubin, Total 0.5 mg/dL (0.1-1.0); Blood Urea Nitrogen 33.0 mg/dL (8-24); CO2, Blood 24.0 mmol/L (21-32); Calcium, Blood 9.2 mg/dL (8.5-10.1); Chloride, Blood 107.0 mmol/L (98-108); Creatinine, Blood 1.81 mg/dL (0.40-1.00); Globulin, Blood 2.7 g/dL (2.2-4.0); Glucose, Blood 139.0 mg/dL (70-99); Potassium, Blood 4.5 mmol/L (3.5-5.5); Sodium, Blood 136.0 mmol/L (136-145); Total Protein, Blood 6.1 g/dL (6.4-8.2)
[2025-04-25] MEDS ORDERED: NS 1,000 ML IV SCH (08:00)
[2025-04-25] MEDS ORDERED: Cholecalciferol 1000 Unit Tablet (=25MCG) PO SCH (09:00)
--- NOTE | 2025-04-25 10:00 | NUR ---
UPDATE SPOKE TO INTERVENTIONAL RADIOLOGIST REGARDING PATIENT CONDITION. PER IR, NO INTERVENTION NECESSARY AT THIS TIME, POTENTIALLY OUTPATIENT MANAGEMENT IF NECESSARY.
--- NOTE | 2025-04-25 11:30 | NUR ---
UPDATE PER GROUP CHIEF OPERATOR, T WAVE CHANGES NOTED, PATIENT ASYMPTOMATIC WITHOUT CHEST PAIN, PRESSURE OR DYSPNEA, VSS. PROVIDER NOTIFIED OF CHANGES, TO PERFORM EKG. EKG PERFORMED, PROVIDER MADE AWARE, NO NEW ORDERS AT THIS TIME.
[2025-04-25] MEDS ORDERED: Enoxaparin 40 MG/0.4 ML SYR SC SCH (13:00)
[2025-04-25] MEDS ORDERED: Enoxaparin 30 MG/0.3 ML SYR SC SCH (13:00)
[2025-04-25 15:06] LABS: Source, Urine Clean Catch
[2025-04-25 15:10] LABS: Bilirubin, Urine Neg (Neg); Color, Urine Yellow (P-Yellow); Glucose Qualitative, Urine Neg (Neg); Ketones, Urine Neg (Neg); Leukocyte Esterase, Urine 2+ (Neg); Protein, Urine 1+ (Neg); Specific Gravity, Urine 1.020 (1.003-1.022); Urobilinogen, Urine NORM (Normal)
[2025-04-25 15:25] LABS: Red Blood Cells, Urine 0-2 /hpf (0-2)
--- NOTE | 2025-04-25 16:56 | NUR ---
SHIFT SUMMARY PATIENT IS ALERT AND ORIENTED X3, CONFUSED REGARDING DATE/TIME, ABLE TO FOLLOW COMMANDS AND MAKE NEEDS KNOWN. PATIENT IS INTERMITTENTLY FORGETFUL, CONSISTENT WITH DEMENTIA AT BASELINE. TELE IN PLACE, SINUS GAVINO TO SINUS RHYTHM 40'S TO 60'S, PATIENT HYPERTENSIVE THIS SHIFT, PATIENT DENIES PRESENCE OF CHEST PAIN, PRESSURE OR DIFFICULTY BREATHING, SPO2 >90% ON RA. SLIGHT T WAVE CHANGES CHANGES NOTED THIS SHIFT, PATIENT ASYMPTOMATIC, EKG PERFORMED, PROVIDER MADE AWARE, NO NEW ORDERS RECEIVED. IR CONSULTED THIS SHIFT, SEE CONSULT NOTE FOR FURTHER INFORMATION. PATIENT DENIES PRESENCE OF N/V. PATIENT IS A SBA WITH FWW TO THE BATHROOM. PATIENT IN BED, BED IN LOWEST POSITION, CALL LIGHT WITHIN REACH.
[2025-04-26 03:47] LABS: BASOPHILS ABSOLUTE AUTO 0.04 K/mm3 (0.00-0.23); BASOPHILS PERCENT AUTO 0 % (0-2); EOSINOPHILS ABSOLUTE AUTO 0.21 K/mm3 (0.00-0.68); EOSINOPHILS PERCENT AUTO 2 % (0-6); Hematocrit 34.4 % (33.0-51.0); Hemoglobin 11.4 g/dL (11.5-16.0); IMMATURE GRAN ABSOLUTE AUTO 0.05 K/mm3 (0.00-0.10); IMMATURE GRAN PERCENT AUTO 0 % (0-1); LYMPHOCYTES ABSOLUTE AUTO 2.97 K/mm3 (0.84-5.20); LYMPHOCYTES PERCENT AUTO 25 % (21-46); MONOCYTES ABSOLUTE AUTO 0.93 K/mm3 (0.16-1.47); MONOCYTES PERCENT AUTO 8 % (4-13); Mean Corpuscular HGB Conc 33.1 g/dL (31.5-36.5); Mean Corpuscular Volume 88 fL (80-100); NEUTROPHILS ABSOLUTE AUTO 7.60 K/mm3 (1.96-9.15); NEUTROPHILS PERCENT AUTO 64 % (41-73); NRBC ABSOLUTE 0.00 K/mm3 (0.00-0.02); NRBC Auto 0.0 /100 WBC (0.0-0.2); Platelet Count 169 K/mm3 (150-400); RDW Coefficient Variation 14.2 % (11.7-14.2); RDW Standard Deviation 45.7 fL (35.1-46.3)
[2025-04-26 04:11] LABS: Anion Gap 9.0 mmol/L (3-11); Blood Urea Nitrogen 44.0 mg/dL (8-24); CO2, Blood 24.0 mmol/L (21-32); Calcium, Blood 8.4 mg/dL (8.5-10.1); Chloride, Blood 109.0 mmol/L (98-108); Creatinine, Blood 1.74 mg/dL (0.40-1.00); Glucose, Blood 98.0 mg/dL (70-99); Magnesium, Blood 2.3 mg/dL (1.6-2.4); Phosphorus, Blood 4.1 mg/dL (2.5-4.9); Potassium, Blood 4.6 mmol/L (3.5-5.5); Sodium, Blood 137.0 mmol/L (136-145)
[2025-04-26 04:58] VITALS: BP 144/51
--- NOTE | 2025-04-26 06:26 | NUR ---
SHIFT SUMMARY PATIENT ALERT AND ORIENTED X4. HAD NO COMPLAINTS OF PAIN OR SHORTNESS OF BREATH. ON ROOM AIR WITH SPO2 >90%. VITAL SIGNS STABLE. NO ACUTE ISSUES NOTED OVERNIGHT. WILL CONTINUE TO MONITOR. CALL LIGHT WITHIN REACH.
[2025-04-26 07:40] VITALS: BP 133/53; BP 204/50
[2025-04-26] MEDS ORDERED: Miconazole Nitrate 2% 85 GM PWD TOP PRN (08:40)
[2025-04-26 10:35] VITALS: BP 151/67
[2025-04-26 10:37] VITALS: BP 147/73
[2025-04-26] MEDS ORDERED: LABETALOL PO (11:57)
[2025-04-26] MEDS ORDERED: AMLODIPINE BES2.5 MG PO (11:57)
--- NOTE | 2025-04-26 12:15 | NUR ---
DISCHARGE SUMMARY: MD ORDERS PLACED FOR DISCHARGE TODAY. PT AND FAMILY AGREEABLE TO PLAN. HOSPITAL COURSE, MEDICATIONS, AND DISCHARGE SUMMARY PAPERWORK REVIEWED WITH PT AND FAMILY BY FORMATION TESTING OPERATOR. VERBALIZED UNDERSTANDING OF EDUCATION BY PT AND FAMILY. ALL LINES REMOVED PRIOR TO DISCHARGE, PT TOLERATED WELL AND WITHOUT INCIDENT. VSS. PT TRANSPORTED HOME BY FAMILY.
== END 2025-04-26 13:23 | disposition home or self-care (01) ==
LOC: ER 20:52 → ERHOLD 20:54 → PCU 20:54 → ERHOLD 20:54 → PCU 04-24 08:48
PROVIDERS: Emergency Medicine; Registered Nurse; Student in an Organized Health Care Education/Training Program; ADMIT Internal Medicine
DX: I21.A1 Myocardial infarction type 2 (principal); N17.9 Acute kidney failure, unspecified; I16.0 Hypertensive urgency; I13.0 Hypertensive heart and chronic kidney disease with heart failure and stage 1 through stage 4 chronic kidney disease, or unspecified chronic kidney disease; E11.22 Type 2 diabetes mellitus with diabetic chronic kidney disease; N18.30 Chronic kidney disease, stage 3 unspecified; I50.22 Chronic systolic (congestive) heart failure; K21.9 Gastro-esophageal reflux disease without esophagitis; R91.1 Solitary pulmonary nodule; I70.1 Atherosclerosis of renal artery; E11.51 Type 2 diabetes mellitus with diabetic peripheral angiopathy without gangrene; E03.9 Hypothyroidism, unspecified; F32.A Depression, unspecified; E78.5 Hyperlipidemia, unspecified; Z66 Do not resuscitate; Z79.01 Long term (current) use of anticoagulants; Z79.890 Hormone replacement therapy; Z79.82 Long term (current) use of aspirin; Z79.899 Other long term (current) drug therapy; Z87.891 Personal history of nicotine dependence; Z88.5 Allergy status to narcotic agent; Z88.8 Allergy status to other drugs, medicaments and biological substances
CPT/HCPCS: 36415; 71045; 71275; 74174; 80048; 80053; 81001; 83735; 84100; 84443; 84484; 85025; 87086; 93005; 93010; 93306; 94762; 96374-59; 96375; 96376; 97116; 97161; 97165; 97530; 97535; 99285-25; A9270; G0378; J0360; J1650; J2270; J2405; J2919; J7030; Q9967